=== PATIENT | male | born 1980 | race Hispanic/Latino ===

== ENCOUNTER 2025-05-27 16:59 | Inpatient (IN) | payer SELFPAY ==
--- NOTE | ~2025-05-27 | CT_ITS ---
CLINICAL INDICATION: Epigastric pain with nausea and vomiting with leukocytosis COMPARISON: None. TECHNIQUE: Multiple contiguous axial images of the abdomen and pelvis were performed following the ad ministration of with 100 mL Omnipaque-350 intravenous contrast The dose-length product (DLP) was 408.60 mGy-cm. Automated exposure control and iterative reconstruction technique were employed. FINDINGS/OBSERVATIONS: Visualized lower thorax: The bilateral lung bases are clear. The heart is of normal size, without pericardial effusion. Small hiatal hernia is present. Liver: The liver demonstrates homogeneous enhancement and is enlarged measuring 21 cm in longitudinal dimens ion. Gallbladder and biliary system: The gallbladder is only minimally distended, and otherwise unremarkable. Pancreas: Global enlargement of the pancreas with significant surrounding inflammatory change both anteriorly a s well as within the lesser sac. The pancreas enhances in its entirety without findings to suggest necrosis. No ductal dilatation is present. No drainable fluid collection is identified. Spleen: The spleen enhances homogeneously and is not enlarged. Kidneys: The bilateral kidneys enhance symmetrically without hydronephrosis or renal calculi. Adrenal glands: Unremarkable. Gastrointestinal tract: Colonic diverticulosis without surrounding inflammatory change. Appendix: The air-filled appendix is of normal caliber (axial series, images 116 through 134) Vasculature: Unremarkable. The inferior vena cava is appropriately distended suggesting euvolemia. Lymph nodes: No pathologically enlarged or morphologically suspicious lymph nodes within the retroperitoneum or at the root of the mesentery. Pelvic structures: The bladder is decompressed, limiting its evaluation. The prostate gland is not enlarged. Body wall and musculoskeletal: No significant degenerative disease within the lower thoracic or lumbosacral spine. IMPRESSION: Acute pancreatitis without evidence of necrosis or drainable fluid collection Reviewed, dictated and finalized at location A.
--- NOTE | ~2025-05-27 | US_ITS ---
EXAM: ABDOMEN ULTRASOUND HISTORY: Pancreatitis COMPARISON: Reference is made to CT examination of the abdomen and pelvis performed 90 minutes earlie r demonstrating acute pancreatitis. FINDINGS: LIVER: The liver is increased in echogenicity and size measuring 21 cm in longitudinal dimension. The portal vein is patent demonstrating hepatopedal flow GALLBLADDER: No stones are identified within the gallbladder, which is otherwise unremarkable. No gallbladder wall thickening or pericholecystic fluid. BILE DUCTS: Common bile duct measures 2.3mm. PANCREAS: Limited evaluation of the pancreas secondary to overlying bowel gas IMPRESSION: Limited evaluation of the pancreas secondary to overlying bowel gas No stones within the gallbladder. Redemonstration of hepatomegaly Reviewed, dictated and finalized at location A.
[2025-05-27 17:00] VITALS: BP 177/101; PULSE 76; RESP 18; TEMP 36.7; O2SAT 100
--- NOTE | 2025-05-27 17:30 | PC.NURSE ---
Patient states he has not ate since yesterday and felt shaky. RN checked BG, 163.
[2025-05-27 17:33] LABS: Hematocrit 46.3 % (42.0-52.0); Hemoglobin 15.7 g/dL (14.0-18.0); Immature Granulocyte Percent A 0.4 % (0-0.5); Lymphocytes Absolute Auto 0.73 K/mm3 (0.9-3.2); Mean Corpuscular HGB Conc 33.9 g/dl (32-36); Mean Corpuscular Hemoglobin 32.1 pg (26-34); Mean Corpuscular Volume 94.7 fl (80-100); Nucleated Red Blood Cells Absolute Auto 0.000 K/mm3 (0.0-0.012); Nucleated Red Blood Cells Perc 0.0 % (0.0-0.2); Platelet Count Result 318 k/mm3 (150-375); Red Blood Count 4.89 M/mm3 (4.6-6.20); White Blood Count 16.5 K/mm3 (4.5-10.0)
[2025-05-27 17:40] LABS: Add Urine Microscopic? YES; Appearance Urine Clear (Clear); Glucose Urine UA Negative (Negative); Leukocyte Esterase Ur Negative LEU/UL (Negative); Nitrate Urine Negative (Negative); Specific Grav Ur 1.024 (1.001-1.035)
[2025-05-27 17:56] LABS: Alanine Aminotransferase 41 U/L (6-50); Albumin Level 4.4 g/dL (3.5-5.1); Alkaline Phosphatase 125 U/L (38-126); Anion Gap 9 mmol/L (4-12); Aspartate Amino Transferase 43 U/L (17-59); Bilirubin,Total 1.4 mg/dL (0.2-1.3); Blood Urea Nitrogen 11 mg/dL (9-20); Calcium 9.2 mg/dL (8.4-10.2); Carbon Dioxide 24 mmol/L (22-30); Chloride 102 mmol/L (98-107); Estimated CRCL calculation 140 ml/min; Estimated Glomerular Filt Rate > 60; Glucose 147 mg/dL (65-110); Potassium 3.8 mmol/L (3.4-5.0); Sodium 135 mmol/L (137-145); Total Protein 7.7 g/dL (6.3-8.2)
[2025-05-27] MEDS: LACTATED RINGERS 1,000 ML 999 ML IV CONT ×2 (18:05→19:16)
[2025-05-27] MEDS: HYDROmorphone HCL INJ (*CRX) 2 MG/ML VIAL 1 MG IV PUSH (18:05)
[2025-05-27] MEDS: ONDANSETRON INJ 4 MG/2 ML VIAL IV PUSH (18:05)
--- NOTE | 2025-05-27 18:25 | ED_ITS ---
HPI - General Adult General Chief complaint: Abdominal Pain Stated complaint: abdominal pain Time Seen by Provider: 05/27/25 17:26 History of Present Illness HPI narrative: 45-year-old male present to the emergency department for evaluation for epigastric pain with associated nausea of vomiting. Patient states the epigastric pain started this morning. Patient does report to daily alcohol use but denies any prior history of pancreatitis or alcoholic cirrhosis. Patient denies any significant past medical history. Related Data Home Medications ?Medication ?Instructions ?Recorded ?Confirmed ?Last Taken ?Type No Home Medications 05/27/25 05/27/25 Unknown History Allergies Allergy/AdvReac Type Severity Reaction Status Date / Time No Known Allergies Allergy Unknown Verified 05/19/14 05:35 Review of Systems 2 Review of Systems: All systems reviewed & are unremarkable except as noted in HPI and below [facility] Family History Family History (Updated 05/27/25 @ 21:03 by Anamaria Guerra RN) Grandparent Acute myocardial infarction Cerebrovascular accident Mother Asthma Mother Diabetes mellitus Hypertension Other Prostate carcinoma Social History Social History Smoking status: Former smoker Alcohol intake: current Drinks per week: 70 Substance use type: crack/cocaine Lack of Transportation: No Lack of Food: Never True Current Housing: I Have Housing Concerned About Future Housing: No Difficulty Paying Gas/Electric Bills: No Difficulty Paying for Meds: No Currently Unemployed: No Education: High School Diploma/GED Difficulty w/ Childcare or Family Care: No Spiritual care concerns: No Exam 2 Narrative: APPEARANCE: Uncomfortable appearing HEAD: normocephalic, atraumatic. EYES: PERRLA/EOMI, conjunctivae clear. NOSE: Normal no drainage EARS:TMS clear with good light reflex. THROAT: Pharynx clear, no exudate. NECK: Supple. No adenopathy, no masses. RESPIRATORY: Airway patent, respirations nonlabored. Clear to auscultation bilaterally, no rales, rhonchi, wheezing. CARDIOVASCULAR: Regular rate and rhythm without murmurs rubs or gallops. ABDOMINAL: Epigastric and right lower quadrant tenderness to palpation MUSCULOSKELETAL: Moves all extremities. Strength/ROM intact, No edema, No calf tenderness. NEURO: Alert. Cranial nerves II through XII intact. Good gait. Good coordination SKIN: Warm, dry. Normal Color Course Vital Signs Vital signs: Vital Signs Temperature 98.1 F 05/27/25 17:00 Pulse Rate 76 08/11/25 17:00 Respiratory Rate 18 05/27/25 17:00 Blood Pressure 177/101 H 05/27/25 17:00 Pulse Oximetry 100 05/27/25 17:00 Oxygen Delivery Room Air 05/27/25 17:00 Temperature 98.4 F 05/27/25 21:28 Pulse Rate 85 05/27/25 21:28 Respiratory Rate 20 05/27/25 21:28 Blood Pressure 157/87 H 05/27/25 21:28 Pulse Oximetry 99 05/27/25 21:28 Oxygen Delivery Room Air 05/27/25 17:00 Medical Decision Making MDM Narrative Medical decision making narrative: 45-year-old male presents emergency department for evaluation for upper abdominal pain. Patient does have a daily alcohol history. Patient is afebrile but does have a leukocytosis of 16.5 and hemoglobin is 15.7. Patient does have a elevated blood sugar of 163 and a lipase of 6438. Patient was treated with 2 L of lactated Ringer's. UA was positive hematuria negative for infection. CT abdomen pelvis was ordered and does show acute appendicitis with no evidence of necrosis. Patient was discussed with hospitalist patient was accepted for admission. Differential Diagnosis Differential Diagnosis: Esophagitis, gastritis, pancreatitis, colitis, diverticulitis Vital Signs Vital Signs: Vital Signs Temperature 98.1 F 05/27/25 17:00 Pulse Rate 76 05/27/25 17:00 Respiratory Rate 18 05/27/25 17:00 Blood Pressure 177/101 H 05/27/25 17:00 Pulse Oximetry 100 05/27/25 17:00 Oxygen Delivery Room Air 05/27/25 17:00 Temperature 98.4 F 05/27/25 21:28 Pulse Rate 85 05/27/25 21:28 Respiratory Rate 20 05/27/25 21:28 Blood Pressure 157/87 H 05/27/25 21:28 Pulse Oximetry 99 05/27/25 21:28 Oxygen Delivery Room Air 05/27/25 17:00 Lab Data Lab results reviewed: Yes I reviewed the patient's lab results. 05/27/25 17:26 05/27/25 17:26 Labs: Lab Results 05/27/25 05/27/25 05/27/25 Range/Units 17:26 17:29 17:30 WBC 16.5 H (4.5-10.0) K/mm3 RBC 4.89 (4.6-6.20) M/mm3 Hgb 15.7 (14.0-18.0) g/dL Hct 46.3 (42.0-52.0) % MCV 94.7 (80-100) fl MCH 32.1 (26-34) pg MCHC 33.9 (32-36) g/dl RDW 12.7 (11.5-14.5) % Plt Count 318 (150-375) k/mm3 MPV 8.8 (7.4-10.4) fl Immature Gran % (Auto) 0.4 (0-0.5) % Neut % (Auto) 88.9 H (45.5-73.1) % Lymph % (Auto) 4.4 L (18.3-44.2) % [place] % (Auto) 6.1 (2.6-8.5) % Eos % (Auto) 0.0 (0-4.4) % Baso % (Auto) 0.2 (0.2-1.2) % Lymph # (Auto) 0.73 L (0.9-3.2) K/mm3 [place] # (Auto) 1.0 H (0.1-0.6) K/mm3 Eos # (Auto) 0.0 (0-0.3) K/mm3 Baso # (Auto) 0.0 (0.0-0.1) K/mm3 Abs Immat Gran (auto) 0.07 H (0.00-0.031) K/mm3 Absolute Neuts (auto) 14.7 H (1.3-6.7) K/mm3 Absolute Nucleated RBC 0.000 (0.0-0.012) K/mm3 Nucleated RBC % 0.0 (0.0-0.2) % Sodium 135 L (137-145) mmol/L Potassium 3.8 (3.4-5.0) mmol/L Chloride 102 (98-107) mmol/L Carbon Dioxide 24 (22-30) mmol/L Anion Gap 9 (4-12) mmol/L BUN 11 (9-20) mg/dL Creatinine 0.51 L (0.7-1.3) mg/dL Estim Creat Clear Calc 140 ml/min Estimated GFR > 60 (59 - ) Glucose 147 H (65-110) mg/dL POC Capillary Glucose 163 H (65-105) mg/dl Calcium 9.2 (8.4-10.2) mg/dL Total Bilirubin 1.4 H (0.2-1.3) mg/dL AST 43 (17-59) U/L ALT 41 (6-50) U/L Alkaline Phosphatase 125 (38-126) U/L Total Protein 7.7 (6.3-8.2) g/dL Albumin 4.4 (3.5-5.1) g/dL Lipase 6438 H (23-300) U/L Urine Color Dark yellow (Yellow) Urine Appearance Clear (Clear) Urine pH 5.5 (5.0-9.0) Ur Specific [place] 1.024 (1.001-1.035) Urine Protein 1+ H (Negative) mg/dL Urine Glucose (UA) Negative (Negative) mg/dL Urine Ketones 2+ H (Negative) mg/dL Ur Blood (Man) 2+ H (Negative) Urine Nitrate Negative (Negative) Urine Bilirubin 1+ H (Negative) Urine Urobilinogen 0.2 (<2.0) mg/dL Leukocyte Esterase Rfl Negative (Negative) SOLIS/UL Urine RBC 21-50 H (0-2) /hpf Urine WBC 0-5 (0-3) /hpf Ur Squamous Epith Cells None seen (Few) /hpf Urine Bacteria None seen /hpf Urine Casts 3-5 Imaging Data Radiologist's impression: Impressions Abdomen/Pelvis CT 05/27/25 18:44 IMPRESSION: Acute pancreatitis without evidence of necrosis or drainable fluid collection Discharge Plan Discharge Clinical Impression: Pancreatitis Patient Disposition: Still a Patient Condition: Serious
[2025-05-27 18:49] LABS: Lipase 6438 U/L (23-300)
[2025-05-27] MEDS: HYDROmorphone HCL INJ (*CRX) 2 MG/ML VIAL 0.5 MG IV PUSH (20:03)
[2025-05-27 20:24] VITALS: BP 146/92; PULSE 108; RESP 20; O2SAT 98
--- NOTE | 2025-05-27 20:53 | ADMGEN ---
This patient, Matt Carmen, was admitted to Medical Room 348-01. Patient/family oriented to hospital policies and general routines including ID bracelet, bed and alarms, visiting hours, pain management, procedures, bathroom and other care routines, personal items, smoking policy, room service/diet, and visiting hours. Information on how to activate the Rapid Response Team has been discussed. Patient/Family are encouraged to report perceived risks to care and to ask questions if they do not understand what they are told or what they should do.
[2025-05-27 21:28] VITALS: BP 157/87; PULSE 85; RESP 20; TEMP 36.9; O2SAT 99; BMI 26.9
[2025-05-27 21:30] VITALS: PULSE 85; RESP 20; O2SAT 99
[2025-05-27] MEDS: KETOROLAC 15 MG/ML VIAL (*BKC) IV PUSH (21:38)
[2025-05-27] MEDS: LACTATED RINGERS 1,000 ML 200 ML IV CONT (21:39)
--- NOTE | 2025-05-27 22:25 | P.HP_ITS ---
H&P: HPI History of Present Illness Date/Time: 05/27/25 22:25 Chief Complaint: Upper gastric pain Narrative: 45-year-old male history of alcohol use presents the hospital with acute upper gastric pain. Patient states that abdominal pain started this morning is acute, causing nausea and vomiting. So he presented to the hospital. He stated that he did drink 10 beers yesterday. He states that he does not drink every day but drinks most days. He is unsure of how many beers he has a daily basis but he believes if less than 10. Patient states that he has never had this before. He denies fevers chills nausea or vomiting. Lab work shows leukocytosis at 16.5, sodium of 135, creatinine of 0.51, glucose of 163, lipase of 6438. Abdominal CT shows acute pancreatitis without evidence of necrosis or fluid collection. Abdominal ultrasound shows hepatomegaly. Review of Systems Review of Systems: 12 systems were reviewed and are negativ e except for as per HPI. [facility] Family History Family History (Updated 05/27/25 @ 21:03 by Anamaria Guerra RN) Grandparent Acute myocardial infarction Cerebrovascular accident Mother Asthma Mother Diabetes mellitus Hypertension Other Prostate carcinoma Social History Social History Smoking status: Former smoker Alcohol intake: current Drinks per week: 70 Substance use type: crack/cocaine Lack of Transportation: No Lack of Food: Never True Current Housing: I Have Housing Concerned About Future Housing: No Difficulty Paying Gas/Electric Bills: No Difficulty Paying for Meds: No Currently Unemployed: No Education: High School Diploma/GED Difficulty w/ Childcare or Family Care: No Spiritual care concerns: No Meds Home Medications and Allergies Home Medications ?Medication ?Instructions ?Recorded ?Confirmed ?Type No Home Medications 05/27/25 05/27/25 History Allergies Allergy/AdvReac Type Severity Reaction Status Date / Time No Known Allergies Allergy Unknown Verified 05/19/14 05:35 Vital Signs Vital Signs - 24 hr 05/27/25 17:00 05/27/25 20:24 05/27/25 21:28 Temperature 98.1 F 98.4 F Pulse Rate 76 108 H 85 Respiratory Rate 18 20 20 Blood Pressure 177/101 H 146/92 H 157/87 H Pulse Oximetry 100 98 99 Oxygen Delivery Room Air Exam Narrative: General: well appearing, appears stated age. HEENT: normocephalic, atraumatic. Mucous membranes moist. EOMI, PERRLA, bilateral sclera anicteric, no conjunctival injection. Neck supple without JVD, lymphadenopathy, or bruit. Respiratory: clear to ascultation bilaterally. No rales/rhonic/wheezes. Cardiovascular: Regular rate and rhythm, normal S1-S2 upon ascultation. No murmurs, rubs, or clicks. PMI is nondisplaced, capillary refill less than 3 second. Abdomen: Soft, round, no pulsatile masses, tender to palpation No rebound, no guarding. No CVA tenderness, no hepatosplenomegaly. Bowel sounds present to all four quadrants. No high pitch or tinkling sounds, resonant to percussion. Extremities: No cyanosis, clubbing, or edema present. Pulses are palpable 2/2. Active ROM to all four extremities. Neuro: Alert and orientated x 4. PERRLA. Cranial nerves 2-12 intact without focal deficit. Skin: Warm, dry, and intact, without rash, erythema, or lesion. Psych: pleasant, cooperative, normal speech, normal affect, no hallucinations, no dysarthia H&P: Results Labs Labs: Short CBC 05/27/25 Range/Units 17:26 WBC 16.5 H (4.5-10.0) K/mm3 Hgb 15.7 (14.0-18.0) g/dL Hct 46.3 (42.0-52.0) % Plt Count 318 (150-375) k/mm3 BMP 05/27/25 17:26 Sodium 135 L Potassium 3.8 Chloride 102 Carbon Dioxide 24 BUN 11 Creatinine 0.51 L Glucose 147 H Calcium 9.2 Liver Function 05/27/25 Range/Units 17:26 Total Bilirubin 1.4 H (0.2-1.3) mg/dL AST 43 (17-59) U/L ALT 41 (6-50) U/L Alkaline Phosphatase 125 (38-126) U/L Albumin 4.4 (3.5-5.1) g/dL Urine 05/27/25 Range/Units 17:30 Urine Color Dark yellow (Yellow) Urine Appearance Clear (Clear) Urine pH 5.5 (5.0-9.0) Ur Specific [place] 1.024 (1.001-1.035) Urine Protein 1+ H (Negative) mg/dL Urine Glucose (UA) Negative (Negative) mg/dL Assessment and Plan Assessment and plan (1) Pancreatitis: Code(s): K85.90 - Acute pancreatitis without necrosis or infection, unspecified Status: Acute Assessment and Plan: 2 L LR bolus followed by 200 mL Dilaudid and Toradol Okay for water and ice chips Lipase in the morning (2) Leukocytosis: Code(s): D72.829 - Elevated white blood cell count, unspecified Status: Acute Assessment and Plan: Leukocytosis is often common in pancreatitis due to inflammation no antibiotics indicated at this time (3) Hepatomegaly: Code(s): R16.0 - Hepatomegaly, not elsewhere classified Status: Acute Assessment and Plan: Alcohol cessation discussed with patient Case management consulted CMP in the morning (4) High blood sugar: Code(s): R73.9 - Hyperglycemia, unspecified Status: Acute Assessment and Plan: A1c in the morning (5) Alcohol use: Code(s): F10.90 - Alcohol use, unspecified, uncomplicated Status: Acute Assessment and Plan: [facility] Schedule Librium Patient is express the desire to quit drinking Quality VTE Prophylaxis VTE prophylaxis: mechanical ordered Hospitalist MIPS Advance Care Plan I have confirmed that the patient's Advanced Care Plan is present, code status is documented, or surrogate decision maker is listed in patient medical record.: Yes Medication Reconciliation I have utilized all available resources to obtain, update and review the patients current medications (includes all prescriptions, OTC, herbals, cannabis, and nutritional supplements).: Yes
[2025-05-27] MEDS: chlordiazePOXIDE (*CRX) 25 MG CAPSULE PO (23:24)
[2025-05-28] VITALS (10 sets, daily range): BP systolic 141–146; BP diastolic 82–90; PULSE 71–108; RESP 14–18; TEMP 36.7–36.9; O2SAT 94–97
[2025-05-28] MEDS: HYDROmorphone HCL INJ (*CRX) 2 MG/ML VIAL 1 MG IV PUSH ×7 (00:31→23:25)
[2025-05-28] MEDS: LACTATED RINGERS 1,000 ML 200 ML IV CONT ×5 (02:26→23:26)
[2025-05-28] MEDS: KETOROLAC 15 MG/ML VIAL (*BKC) IV PUSH ×2 (02:27→08:15)
[2025-05-28 05:41] LABS: Hematocrit 40.7 % (42.0-52.0); Hemoglobin 13.5 g/dL (14.0-18.0); Immature Granulocyte Percent A 0.6 % (0-0.5); Lymphocytes Absolute Auto 1.61 K/mm3 (0.9-3.2); Mean Corpuscular HGB Conc 33.2 g/dl (32-36); Mean Corpuscular Hemoglobin 32.0 pg (26-34); Mean Corpuscular Volume 96.4 fl (80-100); Nucleated Red Blood Cells Absolute Auto 0.000 K/mm3 (0.0-0.012); Nucleated Red Blood Cells Perc 0.0 % (0.0-0.2); Platelet Count Result 249 k/mm3 (150-375); Red Blood Count 4.22 M/mm3 (4.6-6.20); White Blood Count 14.3 K/mm3 (4.5-10.0)
[2025-05-28] MEDS: chlordiazePOXIDE (*CRX) 25 MG CAPSULE PO ×4 (05:51→23:25)
[2025-05-28 06:01] LABS: Alanine Aminotransferase 25 U/L (6-50); Albumin Level 3.3 g/dL (3.5-5.1); Alkaline Phosphatase 79 U/L (38-126); Anion Gap 4 mmol/L (4-12); Aspartate Amino Transferase 37 U/L (17-59); Bilirubin,Total 1.2 mg/dL (0.2-1.3); Blood Urea Nitrogen 9 mg/dL (9-20); Calcium 9.3 mg/dL (8.4-10.2); Carbon Dioxide 29 mmol/L (22-30); Chloride 101 mmol/L (98-107); Estimated CRCL calculation 138 ml/min; Estimated Glomerular Filt Rate > 60; Glucose 101 mg/dL (65-110); Potassium 4.2 mmol/L (3.4-5.0); Sodium 134 mmol/L (137-145); Total Protein 6.0 g/dL (6.3-8.2)
[2025-05-28 06:26] LABS: Lipase 5493 U/L (23-300)
--- NOTE | 2025-05-28 09:14 | P.PNIM_ITS ---
Progress Note: A&P Assessment and Plan (1) Pancreatitis: Code(s): K85.90 - Acute pancreatitis without necrosis or infection, unspecified Status: Acute Assessment and Plan: CT abdomen/pelvis: Acute pancreatitis without evidence of necrosis or drainable fluid collection Abdomen US: No stones within the gallbladder, hepatomegaly Etiology: likely alcohol induced given daily drinking: unsure of how many beers he has a daily basis but he believes if less than 10 - Lipase 6438 on admission. Downtrending, currently 5493 on am labs - 2 L LR bolus given on 05/27, remains on LR 200 ml/hr - Analgesics - Diet: clear liquids - Monitor vital signs, I and O's, check stool output, neuro status and patient is a fall risk - Monitor serum electrolytes and CBC - Monitor lactic acid Continues to endorse epigastric pain. Denies nausea/vomiting. Tolerating clear liquid diets. (2) Hepatomegaly: Code(s): R16.0 - Hepatomegaly, not elsewhere classified Status: Acute Assessment and Plan: Alcohol cessation discussed with patient LFTs WNL Case management consulted (3) High blood sugar: Code(s): R73.9 - Hyperglycemia, unspecified Status: Acute Assessment and Plan: Random glucose elevated on admission at 147. A1c 5.7 Continue to monitor (4) Alcohol use: Code(s): F10.90 - Alcohol use, unspecified, uncomplicated Status: Acute Assessment and Plan: Drinks 10 beers a day and at least 2 pints of hard liquor per week Very interested in alcohol cessation CIWA protocol in place Ativan PRN On scheduled Librium, consider tapering pending CIWA Seizure precautions Start thiamine and folic acid p.o. Care coordination consulted Zhen to see patient today. Time Spent With Patient Time with patient: 25 - 35 minutes Subjective Date/time seen: 05/28/25 09:14 Interval history: 45-year-old male with past medical history of alcohol use disorder presents the hospital with acute epigastric pain. Patient is pleasant lying in bed. He continues to endorse epigastric pain but denies any associated nausea/vomiting and is tolerating clear liquid diet well. He has no other complaints denies chest pain, shortness a breath, palpitations. Review of Systems Review of Systems: All systems reviewed & are unremarkable except as noted in HPI and below Exam Narrative: AF HR 85 RR 18 SpO2 96 BP 146/90 General: male in no acute respiratory distress who is nontoxic appearing, lying semi recumbent in bed. HEENT: Normocephalic. Atraumatic. Extraocular movement intact. Sclera clear and anicteric. No facial asymmetry. Chest: Lungs are clear to auscultation bilaterally. CV: Heart was regular rate and rhythm. Abd: Abdomen was soft. Epigastric tenderness without guarding. Nondistended. Positive bowel sounds. Ext: No clubbing, cyanosis, or edema. DP pulses bilaterally. Neuro: Patient is alert and oriented x4. Speech is clear. Objective Data Vital Signs Vital Signs: Vital Signs - 24 hr 05/27/25 17:00 05/27/25 20:24 05/27/25 21:28 Temperature 98.1 F 98.4 F Pulse Rate 76 108 H 85 Respiratory Rate 18 20 20 Blood Pressure 177/101 H 146/92 H 157/87 H Pulse Oximetry 100 98 99 Oxygen Delivery Room Air 05/27/25 21:30 05/28/25 00:00 05/28/25 04:00 Temperature Pulse Rate 85 89 79 Respiratory Rate 20 Blood Pressure Pulse Oximetry 99 Oxygen Delivery Room Air 05/28/25 06:00 Temperature 98.0 F Pulse Rate 85 Respiratory Rate 18 Blood Pressure 146/90 H Pulse Oximetry 96 Oxygen Delivery Intake/Output Intake/Output: Intake & Output 05/25/25 05/26/25 05/27/25 05/28/25 23:59 23:59 23:59 23:59 Intake Total 1999 2200.0 Balance 1999 2200.0 Meds/Results Medications: Active Medications Generic Name Dose Route Start Last Admin Trade Name Freq PRN Reason Stop Dose Admin Chlordiazepoxide HCl 25 mg 05/28/25 00:00 05/28/25 05:51 Chlordiazepoxide (*Crx) 25 Mg Capsule PO 25 mg Q6HR HUDSON Administration Hydromorphone HCl 1 mg 05/27/25 20:52 05/28/25 06:25 Hydromorphone Hcl Inj (*Crx) 2 Mg/Ml Vial IV PUSH 1 mg Q2HR PRN Administration Pain Rated 7-10 Lactated Ringer's 1,000 mls @ 200 mls/hr 05/27/25 19:50 05/28/25 06:24 Lr - Lactated Ringers Iv IV CONT 200 mls/hr .Q5H HUDSON Administration Ketorolac Tromethamine 15 mg 05/27/25 21:00 05/28/25 08:15 Ketorolac 15 Mg/Ml Vial (*Bkc) IV PUSH 15 mg Q6H HUDSON Administration Lorazepam 1 mg 05/27/25 21:50 Lorazepam Inj (*Crx) 2 Mg/Ml Vial IV PUSH Q4HR PRN Alcohol Withdrawal Ondansetron HCl 4 mg 05/27/25 19:50 Ondansetron Inj 4 Mg/2 Ml Vial IV PUSH Q4H PRN Nausea Radiology Results: ITS Impressions Abdomen/Pelvis CT 05/27/25 18:44 IMPRESSION: Acute pancreatitis without evidence of necrosis or drainable fluid collection Abdomen Ultrasound 05/27/25 20:19 IMPRESSION: Limited evaluation of the pancreas secondary to overlying bowel gas No stones within the gallbladder. Redemonstration of hepatomegaly Labs Labs: Laboratory Results - last 24 hr 05/27/25 05/27/25 05/27/25 17:26 17:29 17:30 WBC 16.5 H RBC 4.89 Hgb 15.7 Hct 46.3 MCV 94.7 MCH 32.1 MCHC 33.9 RDW 12.7 Plt Count 318 MPV 8.8 Immature Gran % (Auto) 0.4 Neut % (Auto) 88.9 H Lymph % (Auto) 4.4 L [place] % (Auto) 6.1 Eos % (Auto) 0.0 Baso % (Auto) 0.2 Lymph # (Auto) 0.73 L [place] # (Auto) 1.0 H Eos # (Auto) 0.0 Baso # (Auto) 0.0 Abs Immat Gran (auto) 0.07 H Absolute Neuts (auto) 14.7 H Absolute Nucleated RBC 0.000 Nucleated RBC % 0.0 Sodium 135 L Potassium 3.8 Chloride 102 Carbon Dioxide 24 Anion Gap 9 BUN 11 Creatinine 0.51 L Estim Creat Clear Calc 140 Estimated GFR > 60 Glucose 147 H POC Capillary Glucose 163 H Calcium 9.2 Total Bilirubin 1.4 H AST 43 ALT 41 Alkaline Phosphatase 125 Total Protein 7.7 Albumin 4.4 Lipase 6438 H Urine Color Dark yellow Urine Appearance Clear Urine pH 5.5 Ur Specific [place] 1.024 Urine Protein 1+ H Urine Glucose (UA) Negative Urine Ketones 2+ H Ur Blood (Man) 2+ H Urine Nitrate Negative Urine Bilirubin 1+ H Urine Urobilinogen 0.2 Leukocyte Esterase Rfl Negative Urine RBC 21-50 H Urine WBC 0-5 Ur Squamous Epith Cells None seen Urine Bacteria None seen Urine Casts 3-5 05/28/25 05:29 WBC 14.3 H RBC 4.22 L Hgb 13.5 L Hct 40.7 L MCV 96.4 MCH 32.0 MCHC 33.2 RDW 12.7 Plt Count 249 MPV 8.7 Immature Gran % (Auto) 0.6 H Neut % (Auto) 80.0 H Lymph % (Auto) 11.3 L [place] % (Auto) 7.8 Eos % (Auto) 0.2 Baso % (Auto) 0.1 L Lymph # (Auto) 1.61 [place] # (Auto) 1.1 H Eos # (Auto) 0.0 Baso # (Auto) 0.0 Abs Immat Gran (auto) 0.09 H Absolute Neuts (auto) 11.4 H Absolute Nucleated RBC 0.000 Nucleated RBC % 0.0 Sodium 134 L Potassium 4.2 Chloride 101 Carbon Dioxide 29 Anion Gap 4 BUN 9 Creatinine 0.54 L Estim Creat Clear Calc 138 Estimated GFR > 60 Glucose 101 POC Capillary Glucose Calcium 9.3 Total Bilirubin 1.2 AST 37 ALT 25 Alkaline Phosphatase 79 Total Protein 6.0 L Albumin 3.3 L Lipase 5493 H Urine Color Urine Appearance Urine pH Ur Specific [place] Urine Protein Urine Glucose (UA) Urine Ketones Ur Blood (Man) Urine Nitrate Urine Bilirubin Urine Urobilinogen Leukocyte Esterase Rfl Urine RBC Urine WBC Ur Squamous Epith Cells Urine Bacteria Urine Casts Quality VTE Prophylaxis VTE prophylaxis: mechanical ordered
[2025-05-28] MEDS: THERAPEUTIC MULTIVITAMINS/MINERALS TAB (*BKC) 1 TABLET PO (10:50)
[2025-05-28] MEDS: FOLIC ACID 1 MG TABLET PO (10:50)
[2025-05-28] MEDS: THIAMINE HCL 100 MG TABLET PO (10:50)
[2025-05-28 12:04] LABS: Hemoglobin A1C 5.7 % (<5.7)
[2025-05-28] MEDS: HYDROcodone/acetaminophen (*CRX) 5-325 MG TABLET 1 TAB PO (17:22)
[2025-05-29] VITALS (9 sets, daily range): BP systolic 125–156; BP diastolic 75–92; PULSE 93–113; RESP 18–26; TEMP 36.9–37.7; O2SAT 90–95
[2025-05-29] MEDS: HYDROmorphone HCL INJ (*CRX) 2 MG/ML VIAL 1 MG IV PUSH ×8 (02:02→22:07)
[2025-05-29] MEDS: LACTATED RINGERS 1,000 ML 200 ML IV CONT ×4 (02:02→22:07)
[2025-05-29] MEDS: LORazepam INJ (*CRX) 2 MG/ML VIAL 1 MG IV PUSH (02:29)
[2025-05-29 06:02] LABS: Hematocrit 38.5 % (42.0-52.0); Hemoglobin 12.5 g/dL (14.0-18.0); Mean Corpuscular HGB Conc 32.5 g/dl (32-36); Mean Corpuscular Hemoglobin 31.9 pg (26-34); Mean Corpuscular Volume 98.2 fl (80-100); Platelet Count Result 194 k/mm3 (150-375); Red Blood Count 3.92 M/mm3 (4.6-6.20); White Blood Count 17.0 K/mm3 (4.5-10.0)
[2025-05-29] MEDS: chlordiazePOXIDE (*CRX) 25 MG CAPSULE PO ×3 (06:07→20:06)
[2025-05-29 06:25] LABS: Alanine Aminotransferase 17 U/L (6-50); Albumin Level 3.0 g/dL (3.5-5.1); Alkaline Phosphatase 73 U/L (38-126); Anion Gap 3 mmol/L (4-12); Aspartate Amino Transferase 28 U/L (17-59); Bilirubin,Total 1.1 mg/dL (0.2-1.3); Blood Urea Nitrogen 4 mg/dL (9-20); Calcium 8.0 mg/dL (8.4-10.2); Carbon Dioxide 30 mmol/L (22-30); Chloride 96 mmol/L (98-107); Estimated CRCL calculation 153 ml/min; Estimated Glomerular Filt Rate > 60; Glucose 89 mg/dL (65-110); Potassium 3.6 mmol/L (3.4-5.0); Sodium 129 mmol/L (137-145); Total Protein 5.6 g/dL (6.3-8.2)
[2025-05-29 06:39] LABS: Lipase 3062 U/L (23-300)
[2025-05-29] MEDS: THERAPEUTIC MULTIVITAMINS/MINERALS TAB (*BKC) 1 TABLET PO (08:32)
[2025-05-29] MEDS: THIAMINE HCL 100 MG TABLET PO (08:32)
[2025-05-29] MEDS: FOLIC ACID 1 MG TABLET PO (08:32)
--- NOTE | 2025-05-29 12:07 | P.PNIM_ITS ---
Progress Note: A&P Assessment and Plan (1) Pancreatitis: Code(s): K85.90 - Acute pancreatitis without necrosis or infection, unspecified Status: Acute Assessment and Plan: CT abdomen/pelvis: Acute pancreatitis without evidence of necrosis or drainable fluid collection Abdomen US: No stones within the gallbladder, hepatomegaly Etiology: likely alcohol induced given daily drinking: unsure of how many beers he has a daily basis but he believes if less than 10 - Lipase 6438 on admission. Downtrending, currently 5493 on am labs - 2 L LR bolus given on 05/27, remains on LR 200 ml/hr - Analgesics - Diet: clear liquids - Monitor vital signs, I and O's, check stool output, neuro status and patient is a fall risk - Monitor serum electrolytes and CBC - Monitor lactic acid Continues to endorse epigastric pain. Denies nausea/vomiting. Tolerating clear liquid diets. 05/29- lipase 3062- trending down (2) Hepatomegaly: Code(s): R16.0 - Hepatomegaly, not elsewhere classified Status: Acute Assessment and Plan: Alcohol cessation discussed with patient LFTs WN Case management consulted (3) High blood sugar: Code(s): R73.9 - Hyperglycemia, unspecified Status: Acute Assessment and Plan: Random glucose elevated on admission at 147. A1c 5.7 Continue to monitor (4) Alcohol use: Code(s): F10.90 - Alcohol use, unspecified, uncomplicated Status: Acute Assessment and Plan: Drinks 10 beers a day and at least 2 pints of hard liquor per week Very interested in alcohol cessation [facility] protocol in place Ativan PRN On scheduled Librium, consider tapering pending CIWA Seizure precautions Start thiamine and folic acid p.o. Care coordination consulted Zhen to see patient today. alcohol cessation counseling completed Time Spent With Patient Time with patient: 25 - 35 minutes Subjective Date/time seen: 05/29/25 12:07 Interval history: 45-year-old male with past medical history of alcohol use disorder presents the hospital with acute epigastric pain. Patient is pleasant lying in bed. He continues to endorse epigastric pain but denies any associated nausea/vomiting and is tolerating clear liquid diet well. He has no other complaints denies chest pain, shortness a breath, palpitations. Assuming care. PT is seen and examined. Some upper GI discomfort. Tolerating clear liquid. Review of Systems Review of Systems: 12 systems were reviewed and are negativ e except for as per HPI. All systems reviewed & are unremarkable except as noted in HPI and below Exam Narrative: AF HR 85 RR 18 SpO2 96 BP 146/90 General: male in no acute respiratory distress who is nontoxic appearing, lying semi recumbent in bed. HEENT: Normocephalic. Atraumatic. Extraocular movement intact. Sclera clear and anicteric. No facial asymmetry. Chest: Lungs are clear to auscultation bilaterally. CV: Heart was regular rate and rhythm. Abd: Abdomen was soft. Epigastric tenderness without guarding. Nondistended. Positive bowel sounds. Ext: No clubbing, cyanosis, or edema. DP pulses bilaterally. Neuro: Patient is alert and oriented x4. Speech is clear. Objective Data Vital Signs Vital Signs: Vital Signs - 24 hr 05/28/25 14:00 05/28/25 16:04 05/28/25 20:00 Temperature 98.2 F Pulse Rate 87 108 H 92 Respiratory Rate 14 Blood Pressure 141/84 H Pulse Oximetry 97 Oxygen Delivery 05/28/25 20:51 05/28/25 21:15 05/28/25 21:15 Temperature 98.4 F Pulse Rate 105 H 105 H Respiratory Rate 18 18 Blood Pressure 144/82 H 144/82 H Pulse Oximetry 94 94 Oxygen Delivery Room Air 05/28/25 21:15 05/29/25 00:00 05/29/25 04:21 Temperature Pulse Rate 105 H 107 H 110 H Respiratory Rate Blood Pressure Pulse Oximetry Oxygen Delivery 05/29/25 06:00 05/29/25 08:05 05/29/25 08:30 Temperature 98.5 F Pulse Rate 100 97 Respiratory Rate 18 Blood Pressure 131/75 Pulse Oximetry 95 Oxygen Delivery Room Air Intake/Output Intake/Output: Intake & Output 05/26/25 05/27/25 05/28/25 05/29/25 23:59 23:59 23:59 23:59 Intake Total 1999 5773.3 3440 Output Total 1575 1075 Balance 1999 5828.3 2365 Meds/Results Medications: Active Medications Generic Name Dose Route Start Last Admin Trade Name Freq PRN Reason Stop Dose Admin Hydrocodone Bitart/Acetaminophen 1 tab 05/28/25 14:13 05/28/25 17:22 Hydrocodone/Acetaminophen (*Crx) 5-325 Mg Tablet PO 1 tab Q4H PRN Administration Pain Rated 4-6 Chlordiazepoxide HCl 25 mg 05/28/25 00:00 05/29/25 11:53 Chlordiazepoxide (*Crx) 25 Mg Capsule PO 25 mg Q6HR HUDSON Administration Folic Acid 1 mg 05/28/25 10:00 05/29/25 08:32 Folic Acid 1 Mg Tablet PO 1 mg DAILY HUDSON Administration Hydromorphone HCl 1 mg 05/27/25 20:52 05/29/25 11:05 Hydromorphone Hcl Inj (*Crx) 2 Mg/Ml Vial IV PUSH 1 mg Q2HR PRN Administration Pain Rated 7-10 Lactated Ringer's 1,000 mls @ 200 mls/hr 05/27/25 19:50 05/29/25 08:36 Lr - Lactated Ringers Iv IV CONT 200 mls/hr .Q5H HUDSON Administration Lorazepam 1 mg 05/27/25 21:50 05/29/25 02:29 Lorazepam Inj (*Crx) 2 Mg/Ml Vial IV PUSH 1 mg Q4HR PRN Administration Alcohol Withdrawal Multivitamins/Calcium 1 tablet 05/28/25 10:00 05/29/25 08:32 Therapeutic Multivitamins/Minerals Tab (*Bkc) PO 1 tablet DAILY HUDSON Administration Ondansetron HCl 4 mg 05/27/25 19:50 Ondansetron Inj 4 Mg/2 Ml Vial IV PUSH Q4H PRN Nausea Polyethylene Glycol 17 gm 05/28/25 11:55 05/29/25 08:32 Polyethylene Glycol 3350 17 Gm Powd.Pack PO 17 gm QAM HUDSON Administration Thiamine HCl 100 mg 05/28/25 10:00 05/29/25 08:32 Thiamine Hcl 100 Mg Tablet PO 100 mg DAILY HUDSON Administration Radiology Results: ITS Impressions Abdomen/Pelvis CT 05/27/25 18:44 IMPRESSION: Acute pancreatitis without evidence of necrosis or drainable fluid collection Abdomen Ultrasound 05/27/25 20:19 IMPRESSION: Limited evaluation of the pancreas secondary to overlying bowel gas No stones within the gallbladder. Redemonstration of hepatomegaly Labs Labs: Laboratory Results - last 24 hr 05/28/25 05/28/25 05/29/25 18:41 23:31 05:51 WBC 17.0 H RBC 3.92 L Hgb 12.5 L Hct 38.5 L MCV 98.2 MCH 31.9 MCHC 32.5 RDW 12.3 Plt Count 194 MPV 9.0 Sodium 129 L Potassium 3.6 Chloride 96 L Carbon Dioxide 30 Anion Gap 3 L BUN 4 L D Creatinine 0.48 L Estim Creat Clear Calc 153 Estimated GFR > 60 Glucose 89 POC Capillary Glucose 133 H 111 H Calcium 8.0 L Total Bilirubin 1.1 AST 28 ALT 17 Alkaline Phosphatase 73 Total Protein 5.6 L Albumin 3.0 L Lipase 3062 H 05/29/25 05/29/25 06:11 11:54 WBC RBC Hgb Hct MCV MCH MCHC RDW Plt Count MPV Sodium Potassium Chloride Carbon Dioxide Anion Gap BUN Creatinine Estim Creat Clear Calc Estimated GFR Glucose POC Capillary Glucose 92 102 Calcium Total Bilirubin AST ALT Alkaline Phosphatase Total Protein Albumin Lipase Quality VTE Prophylaxis VTE prophylaxis: mechanical ordered
[2025-05-29] MEDS: FAMOTIDINE 20 MG TABLET PO (20:11)
[2025-05-30] VITALS (12 sets, daily range): BP systolic 125–132; BP diastolic 71–84; PULSE 74–101; RESP 18; TEMP 36.7–36.9; O2SAT 93–97
[2025-05-30] MEDS: chlordiazePOXIDE (*CRX) 25 MG CAPSULE PO ×4 (00:29→19:53)
[2025-05-30] MEDS: HYDROmorphone HCL INJ (*CRX) 2 MG/ML VIAL 1 MG IV PUSH ×4 (00:31→06:32)
[2025-05-30] MEDS: LACTATED RINGERS 1,000 ML 200 ML IV CONT ×5 (04:39→23:47)
[2025-05-30 05:51] LABS: Hematocrit 36.4 % (42.0-52.0); Hemoglobin 12.2 g/dL (14.0-18.0); Mean Corpuscular HGB Conc 33.5 g/dl (32-36); Mean Corpuscular Hemoglobin 32.3 pg (26-34); Mean Corpuscular Volume 96.3 fl (80-100); Platelet Count Result 216 k/mm3 (150-375); Red Blood Count 3.78 M/mm3 (4.6-6.20); White Blood Count 14.6 K/mm3 (4.5-10.0)
[2025-05-30 06:15] LABS: Alanine Aminotransferase 18 U/L (6-50); Albumin Level 2.9 g/dL (3.5-5.1); Alkaline Phosphatase 130 U/L (38-126); Anion Gap 3 mmol/L (4-12); Aspartate Amino Transferase 38 U/L (17-59); Bilirubin,Total 2.2 mg/dL (0.2-1.3); Blood Urea Nitrogen 3 mg/dL (9-20); Calcium 8.4 mg/dL (8.4-10.2); Carbon Dioxide 30 mmol/L (22-30); Chloride 98 mmol/L (98-107); Estimated CRCL calculation 159 ml/min; Estimated Glomerular Filt Rate > 60; Glucose 97 mg/dL (65-110); Lipase 908 U/L (23-300); Potassium 3.4 mmol/L (3.4-5.0); Sodium 131 mmol/L (137-145); Total Protein 5.8 g/dL (6.3-8.2)
[2025-05-30] MEDS: THIAMINE HCL 100 MG TABLET PO (08:07)
[2025-05-30] MEDS: THERAPEUTIC MULTIVITAMINS/MINERALS TAB (*BKC) 1 TABLET PO (08:07)
[2025-05-30] MEDS: FAMOTIDINE 20 MG TABLET PO ×2 (08:07→19:53)
[2025-05-30] MEDS: HYDROcodone/acetaminophen (*CRX) 5-325 MG TABLET 1 TAB PO ×3 (08:08→16:36)
[2025-05-30] MEDS: FOLIC ACID 1 MG TABLET PO (08:08)
[2025-05-30] MEDS: MECLIZINE HCL 12.5 MG TABLET PO ×3 (12:04→23:46)
--- NOTE | 2025-05-30 15:05 | P.PNIM_ITS ---
Progress Note: A&P Assessment and Plan (1) Pancreatitis: Code(s): K85.90 - Acute pancreatitis without necrosis or infection, unspecified Status: Acute Assessment and Plan: CT abdomen/pelvis: Acute pancreatitis without evidence of necrosis or drainable fluid collection Abdomen US: No stones within the gallbladder, hepatomegaly Etiology: likely alcohol induced given daily drinking: unsure of how many beers he has a daily basis but he believes if less than 10 - Lipase 6438 on admission. Downtrending, currently 5493 on am labs - 2 L LR bolus given on 05/27, remains on LR 200 ml/hr - Analgesics - Diet: clear liquids - Monitor vital signs, I and O's, check stool output, neuro status and patient is a fall risk - Monitor serum electrolytes and CBC - Monitor lactic acid Continues to endorse epigastric pain. Denies nausea/vomiting. Tolerating clear liquid diets. 05/29- lipase 3062- trending down (2) Hepatomegaly: Code(s): R16.0 - Hepatomegaly, not elsewhere classified Status: Acute Assessment and Plan: Alcohol cessation discussed with patient LFTs WN Case management consulted (3) High blood sugar: Code(s): R73.9 - Hyperglycemia, unspecified Status: Acute Assessment and Plan: Random glucose elevated on admission at 147. A1c 5.7 Continue to monitor (4) Alcohol use: Code(s): F10.90 - Alcohol use, unspecified, uncomplicated Status: Acute Assessment and Plan: Drinks 10 beers a day and at least 2 pints of hard liquor per week Very interested in alcohol cessation [facility] protocol in place Ativan PRN On scheduled Librium, consider tapering pending CIWA Seizure precautions Start thiamine and folic acid p.o. Care coordination consulted Zhen to see patient today. alcohol cessation counseling completed titrate Librium down- 25 mg q8h 05/31, 25 mg q12h on 06/01, 25 mg at hs on 06/02 Time Spent With Patient Time with patient: 25 - 35 minutes Subjective Date/time seen: 05/30/25 15:05 Interval history: 45-year-old male with past medical history of alcohol use disorder presents the hospital with acute epigastric pain. Patient is pleasant lying in bed. He continues to endorse epigastric pain but denies any associated nausea/vomiting and is tolerating clear liquid diet well. He has no other complaints denies chest pain, shortness a breath, palpitations. Assuming care. PT is seen and examined. Some upper GI discomfort. Tolerating clear liquid. somewhat dizzy today but overall feeling ok. Review of Systems Review of Systems: 12 systems were reviewed and are negativ e except for as per HPI. All systems reviewed & are unremarkable except as noted in HPI and below Exam Narrative: AF HR 85 RR 18 SpO2 96 BP 146/90 General: male in no acute respiratory distress who is nontoxic appearing, lying semi recumbent in bed. HEENT: Normocephalic. Atraumatic. Extraocular movement intact. Sclera clear and anicteric. No facial asymmetry. Chest: Lungs are clear to auscultation bilaterally. CV: Heart was regular rate and rhythm. Abd: Abdomen was soft. Epigastric tenderness without guarding. Nondistended. Positive bowel sounds. Ext: No clubbing, cyanosis, or edema. DP pulses bilaterally. Neuro: Patient is alert and oriented x4. Speech is clear. Objective Data Vital Signs Vital Signs: Vital Signs - 24 hr 05/29/25 16:05 05/29/25 20:00 05/29/25 20:41 Temperature 98.8 F Pulse Rate 97 93 107 H Respiratory Rate 18 Blood Pressure 156/92 H Pulse Oximetry 90 05/30/25 00:00 05/30/25 04:00 05/30/25 05:45 Temperature 98.1 F Pulse Rate 101 H 90 87 Respiratory Rate 18 Blood Pressure 128/84 Pulse Oximetry 94 05/30/25 08:05 05/30/25 09:08 05/30/25 09:11 Temperature Pulse Rate 92 87 90 Respiratory Rate Blood Pressure 131/71 132/83 Pulse Oximetry 93 97 05/30/25 12:06 05/30/25 14:00 Temperature 98.2 F Pulse Rate 77 74 Respiratory Rate 18 Blood Pressure 128/77 Pulse Oximetry 95 Intake/Output Intake/Output: Intake & Output 05/27/25 05/28/25 05/29/25 05/30/25 23:59 23:59 23:59 23:59 Intake Total 1999 5773.3 7510 3330 Output Total 1575 4225 2350 Balance 1999 4198.3 3285 980 Meds/Results Medications: Active Medications Generic Name Dose Route Start Last Admin Trade Name Freq PRN Reason Stop Dose Admin Hydrocodone Bitart/Acetaminophen 1 tab 05/28/25 14:13 05/30/25 12:04 Hydrocodone/Acetaminophen (*Crx) 5-325 Mg Tablet PO 1 tab Q4H PRN Administration Pain Rated 4-6 Hydrocodone Bitart/Acetaminophen 1 tab 05/30/25 13:59 Hydrocodone/Acetaminophen (*Crx) 7.5-325 Mg Tablet PO Q4H PRN Pain Rated 7-10 Chlordiazepoxide HCl 25 mg 05/28/25 00:00 05/30/25 12:04 Chlordiazepoxide (*Crx) 25 Mg Capsule PO 25 mg Q6HR HUDSON Administration Famotidine 20 mg 05/29/25 21:00 05/30/25 08:07 Famotidine 20 Mg Tablet PO 20 mg Q12HR HUDSON Administration Folic Acid 1 mg 05/28/25 10:00 05/30/25 08:08 Folic Acid 1 Mg Tablet PO 1 mg DAILY HUDSON Administration Hydromorphone HCl 1 mg 05/27/25 20:52 05/30/25 06:32 Hydromorphone Hcl Inj (*Crx) 2 Mg/Ml Vial IV PUSH 1 mg Q2HR PRN Administration breakthrough Pain Rated 7-10 Lactated Ringer's 1,000 mls @ 200 mls/hr 05/27/25 19:50 05/30/25 12:04 Lr - Lactated Ringers Iv IV CONT 200 mls/hr .Q5H HUDSON Administration Lorazepam 1 mg 05/27/25 21:50 05/29/25 02:29 Lorazepam Inj (*Crx) 2 Mg/Ml Vial IV PUSH 1 mg Q4HR PRN Administration Alcohol Withdrawal Meclizine HCl 12.5 mg 05/30/25 18:00 Meclizine Hcl 12.5 Mg Tablet PO Q6HR HUDSON Multivitamins/Calcium 1 tablet 05/28/25 10:00 05/30/25 08:07 Therapeutic Multivitamins/Minerals Tab (*Bkc) PO 1 tablet DAILY HUDSON Administration Ondansetron HCl 4 mg 05/27/25 19:50 Ondansetron Inj 4 Mg/2 Ml Vial IV PUSH Q4H PRN Nausea Polyethylene Glycol 17 gm 05/28/25 11:55 05/30/25 08:09 Polyethylene Glycol 3350 17 Gm Powd.Pack PO 17 gm QAM HUDSON Administration Thiamine HCl 100 mg 05/28/25 10:00 05/30/25 08:07 Thiamine Hcl 100 Mg Tablet PO 100 mg DAILY HUDSON Administration Radiology Results: ITS Impressions Abdomen/Pelvis CT 05/27/25 18:44 IMPRESSION: Acute pancreatitis without evidence of necrosis or drainable fluid collection Abdomen Ultrasound 05/27/25 20:19 IMPRESSION: Limited evaluation of the pancreas secondary to overlying bowel gas No stones within the gallbladder. Redemonstration of hepatomegaly Labs Labs: Laboratory Results - last 24 hr 05/29/25 05/29/25 05/30/25 18:09 23:35 05:32 WBC RBC Hgb Hct MCV MCH MCHC RDW Plt Count MPV Sodium 131 L Potassium 3.4 Chloride 98 Carbon Dioxide 30 Anion Gap 3 L BUN 3 L Creatinine 0.46 L Estim Creat Clear Calc 159 Estimated GFR > 60 Glucose 97 POC Capillary Glucose 194 H 101 Calcium 8.4 Total Bilirubin 2.2 H AST 38 ALT 18 Alkaline Phosphatase 130 H Total Protein 5.8 L Albumin 2.9 L Lipase 908 H 05/30/25 05/30/25 05/30/25 05:33 05:41 11:46 WBC 14.6 H RBC 3.78 L Hgb 12.2 L Hct 36.4 L MCV 96.3 MCH 32.3 MCHC 33.5 RDW 12.5 Plt Count 216 MPV 9.5 Sodium Potassium Chloride Carbon Dioxide Anion Gap BUN Creatinine Estim Creat Clear Calc Estimated GFR Glucose POC Capillary Glucose 89 120 H Calcium Total Bilirubin AST ALT Alkaline Phosphatase Total Protein Albumin Lipase Quality VTE Prophylaxis VTE prophylaxis: mechanical ordered
[2025-05-30] MEDS: HYDROcodone/acetaminophen (*CRX) 7.5-325 MG TABLET 1 TAB PO ×2 (19:53→23:46)
[2025-05-31] VITALS (10 sets, daily range): BP systolic 110–147; BP diastolic 62–91; PULSE 65–90; RESP 18–20; TEMP 36.3–37; O2SAT 97–100
[2025-05-31] MEDS: HYDROcodone/acetaminophen (*CRX) 7.5-325 MG TABLET 1 TAB PO ×3 (01:38→20:22)
[2025-05-31] MEDS: chlordiazePOXIDE (*CRX) 25 MG CAPSULE PO ×3 (04:03→20:23)
[2025-05-31] MEDS: MECLIZINE HCL 12.5 MG TABLET PO ×2 (06:02→12:55)
[2025-05-31 07:04] LABS: Hematocrit 34.4 % (42.0-52.0); Hemoglobin 11.3 g/dL (14.0-18.0); Mean Corpuscular HGB Conc 32.8 g/dl (32-36); Mean Corpuscular Hemoglobin 31.9 pg (26-34); Mean Corpuscular Volume 97.2 fl (80-100); Platelet Count Result 240 k/mm3 (150-375); Red Blood Count 3.54 M/mm3 (4.6-6.20); White Blood Count 11.7 K/mm3 (4.5-10.0)
[2025-05-31 07:30] LABS: Alanine Aminotransferase 15 U/L (6-50); Albumin Level 2.7 g/dL (3.5-5.1); Alkaline Phosphatase 145 U/L (38-126); Anion Gap 5 mmol/L (4-12); Aspartate Amino Transferase 27 U/L (17-59); Bilirubin,Total 1.1 mg/dL (0.2-1.3); Blood Urea Nitrogen 3 mg/dL (9-20); Calcium 8.3 mg/dL (8.4-10.2); Carbon Dioxide 29 mmol/L (22-30); Chloride 101 mmol/L (98-107); Estimated CRCL calculation 168 ml/min; Estimated Glomerular Filt Rate > 60; Glucose 101 mg/dL (65-110); Lipase 761 U/L (23-300); Potassium 3.2 mmol/L (3.4-5.0); Sodium 135 mmol/L (137-145); Total Protein 5.6 g/dL (6.3-8.2)
[2025-05-31] MEDS: HYDROcodone/acetaminophen (*CRX) 5-325 MG TABLET 1 TAB PO (08:20)
[2025-05-31] MEDS: FOLIC ACID 1 MG TABLET PO (08:20)
[2025-05-31] MEDS: THIAMINE HCL 100 MG TABLET PO (08:20)
[2025-05-31] MEDS: FAMOTIDINE 20 MG TABLET PO ×2 (08:20→20:22)
[2025-05-31] MEDS: THERAPEUTIC MULTIVITAMINS/MINERALS TAB (*BKC) 1 TABLET PO (08:20)
--- NOTE | 2025-05-31 15:09 | PM.DS ---
DS: Admitting Diagnosis Discharge Date 05/31 Admitting Diagnosis abd pain, pancreatitis DS: Discharge Diagnosis Discharge Diagnosis (1) Pancreatitis: Code(s): K85.90 - Acute pancreatitis without necrosis or infection, unspecified Status: Acute (2) Hepatomegaly: Code(s): R16.0 - Hepatomegaly, not elsewhere classified Status: Acute (3) High blood sugar: Code(s): R73.9 - Hyperglycemia, unspecified Status: Acute (4) Alcohol use: Code(s): F10.90 - Alcohol use, unspecified, uncomplicated Status: Acute DS: Summary Hospital Course Hospital Course: 45-year-old male with past medical history of alcohol use disorder presents the hospital with acute epigastric pain. Several issues were addressed: # pancreatitis CT abdomen/pelvis: Acute pancreatitis without evidence of necrosis or drainable fluid collection Abdomen US: No stones within the gallbladder, hepatomegaly Etiology: likely alcohol induced given daily drinking: unsure of how many beers he has a daily basis but he believes if less than 10 - Lipase 6438 on admission. Downtrending- 5493 , 05/29- lipase 3062- trending down - 2 L LR bolus given on 05/27 - Analgesics - Diet: clear liquids- was able to advance #Hepatomegaly: Alcohol cessation discussed with patient LFTs WNL Case management consulted for resources # High blood sugar: Random glucose elevated on admission at 147. A1c 5.7 will need a f/u with PCP #Alcohol use: Drinks 10 beers a day and at least 2 pints of hard liquor per week Very interested in alcohol cessation [facility] protocol in place Ativan PRN- did not need it On scheduled Librium, consider tapering pending [facility] Seizure precautions thiamine and folic acid p.o. Care coordination consulted -titrate Librium down- 25 mg q8h 05/31, 25 mg q12h on 06/01, 25 mg at hs on 06/02 Time Spent with Patient Time attestation: Total time spent providing and/or coordinating discharge services: Exam Narrative: General: male in no acute respiratory distress who is nontoxic appearing, lying semi recumbent in bed. HEENT: Normocephalic. Atraumatic. Extraocular movement intact. Sclera clear and anicteric. No facial asymmetry. Chest: Lungs are clear to auscultation bilaterally. CV: Heart was regular rate and rhythm. Abd: Abdomen was soft. Epigastric tenderness without guarding. Nondistended. Positive bowel sounds. Ext: No clubbing, cyanosis, or edema. DP pulses bilaterally. Neuro: Patient is alert and oriented x4. Speech is clear. Const: General: comfortable DS: Data Data Completed and Pending Labs on day of discharge: Labs from last 24 hours 05/31/25 05/31/25 05/30/25 05:48 05:31 23:34 WBC 11.7 H RBC 3.54 L Hgb 11.3 L Hct 34.4 L MCV 97.2 MCH 31.9 MCHC 32.8 RDW 12.4 Plt Count 240 MPV 9.7 Sodium 135 L Potassium 3.2 L Chloride 101 Carbon Dioxide 29 Anion Gap 5 BUN 3 L Creatinine 0.43 L Estim Creat Clear Calc 168 Estimated GFR > 60 Glucose 101 POC Capillary Glucose 96 102 Calcium 8.3 L Total Bilirubin 1.1 AST 27 ALT 15 Alkaline Phosphatase 145 H Total Protein 5.6 L Albumin 2.7 L Lipase 761 H Discharge Plan Discharge Attending physician on discharge: Adriana Ayala Consulting providers: Srini Peña; Felicia Byrnes Discharging Clinician: Emma Davis Patient Disposition: Home Activity: february shower Diet: low fat Discharge Instructions: You were admitted for abd pain/pancreatitis. # pancreatitis CT abdomen/pelvis: Acute pancreatitis without evidence of necrosis or drainable fluid collection Abdomen US: No stones within the gallbladder, hepatomegaly Etiology: likely alcohol induced given daily drinking. # High blood sugar: Random glucose elevated on admission at 147. A1c 5.7 will need a f/u with PCP #Alcohol use: Drinks 10 beers a day and at least 2 pints of hard liquor per week Please use resources given to you per care coordination. You were given Librium to help with alcohol withdrawal symptoms. Librium down- 25 mg q8h 05/31, 25 mg q12h on 06/01, 25 mg at hs on 06/02 Pepcid was started and will continue. Continue thiamine and multivitamin. Patient Instructions: Antibiotic Form Patient Language: Belarusian Stand Alone Forms: General Discharge Information Follow-up/Referrals: PHYSICIAN,SCRAP DROP CRANE OPERATOR [Primary Care Provider] - 2 Weeks Discharge Medications: New chlordiazepoxide HCl 25 mg Capsule 25 mg PO Q8H Qty: 5 0RF Rx Instructions: please take 25 mg at bedtime. 06/01 at bedtime and then take one at bedtime if needed. famotidine [Pepcid] 20 mg tablet 20 mg PO DAILY Qty: 30 0RF hydrocodone-acetaminophen 5-325 mg Tablet 1 tablet PO Q4H PRN (Reason: Pain Rated 4-6) Qty: 12 0RF thiamine HCl (vitamin B1) [Vitamin B-1] 100 mg Tablet 100 mg PO DAILY Qty: 30 0RF Date of admission: 05/28/25 09:03 Primary Care Provider: PHYSICIAN,SCRAP DROP CRANE OPERATOR Admitting Provider: German Bro Attending physician on admission: German Bro Condition: Stable Quality VTE Prophylaxis VTE prophylaxis: mechanical ordered Hospitalist MIPS Heart Failure (Exclusion) Patient has history of Heart Transplant or Left Ventricular Assistive Device?: No IF YES, STOP HERE Heart Failure (Qualifier) Patient has current or prior documentation of LVEF less than or equal to 40%, or mod/servere depressed LVSF?: No IF NO, STOP HERE
--- NOTE | 2025-05-31 20:29 | PC.NURSE ---
AT THIS TIME PATIENT HAS MISUNDERSTANDING SURROUNDING DISCHARGE. COMMENT WAS MADE TO THIS NURSE THAT THE PHYSICIAN MADE HIM AWARE THAT HE WAS ABLE TO DISCHARGE TODAY. PER PATIENT HE'S UNABLE TO GET A RIDE UNTIL AFTER 9PM. CONCERNED WAS ALSO VOICED TO PAIN CONTROL. THIS NURSE CLARIFIED WITH PATIENT THAT THERE WAS AN ORDER FOR HIS DISCHARGE TODAY ALSO THAT PAIN MANAGEMENT WAS ADDRESSED IN THE PAPERWORK. CURRENTLY PATIENT IS UNABLE TO GET INTO CONTACT WITH HIS TRANSPORTATION. ANIMAL HUSBANDRY TECHNICIAN NOTIFIED.
--- NOTE | 2025-05-31 23:32 | PC.NURSE ---
2320: DISCHARGE LITERATURE REVIEWED AND GIVEN TO PATIENT ALONG WITH PRINTED PRESCRIPTIONS. ALL BELONGINGS AND PATIENT TRANSFERRED OUT TO PERSONAL VEHICLE VIA WHEELCHAIR.
== END 2025-05-31 23:20 | disposition home or self-care (01) | DRG 282 ==
LOC: ANHED 19:13 → ANH3MED 20:23
PROVIDERS: Emergency Medicine; Nurse Practitioner Gerontology; Student in an Organized Health Care Education/Training Program; Admitting Provider Internal Medicine; Emergency Provider Emergency Medicine; Visit Provider Nurse Practitioner
DX: K85.90 Acute pancreatitis without necrosis or infection, unspecified (principal); R16.0 Hepatomegaly, not elsewhere classified; R73.9 Hyperglycemia, unspecified; F10.90 Alcohol use, unspecified, uncomplicated; Z87.891 Personal history of nicotine dependence
CPT/HCPCS: 36415; 74177; 76705; 80053; 81001; 82948; 83036; 83690; 85025; 85027; 96361; 96374; 96375; 96376; 99285; A9270; G0378; J1171; J1885; J2060; J2405; J7120; Q9967

== ENCOUNTER 2025-07-04 09:15 | Inpatient (IN) | payer SELFPAY ==
[2025-07-04] VITALS (15 sets, daily range): BP systolic 131–147; BP diastolic 82–92; PULSE 56–83; RESP 16–20; TEMP 36.2–36.9; O2SAT 97–99; BMI 28.3
--- NOTE | ~2025-07-04 | CT_ITS ---
CT abdomen pelvis w con Clinical History: lower abdominal pain . Comparison: CT abdomen and pelvis 05/27/2025 Abdominal ultrasound 05/27/2025 Technique: Axial images lung bases to symphysis pubis IV contrast information not listed in PACS Coronal, sagittal reformats CT images acquired with automatic exposure control for dose reduction DLP: 485 mGy-cm Findings: Lung bases: Clear. Visualized heart and pericardium: Unremarkable. Liver: Hepatomegaly, steatosis. Gallbladder: Unremarkable. Spleen: Unremarkable. Pancreas: Peripancreatic fluid and inflammation. Decreased glandular enhancement along tail. No peripancreatic organized fluid collection. Regional vessels patent. Adrenal glands: Unremarkable. Kidneys: A few small bilateral probable cysts Right kidney- No hydronephrosis. No renal stones. Left kidney- No hydronephrosis. No renal stones. Distal esophagus/stomach: Unremarkable. Small bowel loops: Normal caliber and wall thickness. Colon: Diverticula. Normal caliber and wall thickness. Normal RLQ appendix. Nodes: No enlarged nodes. Peritoneum: Mild scattered ascites. No free air. Urinary bladder: Unremarkable. Prostate: Unremarkable. Bones: No acute bony abnormality. Soft tissues: Unremarkable. Aorta: No aneurysm or dissection. IVC: Unremarkable. Main portal vein/SMV/splenic vein: Patent. IMPRESSION: 1. Acute pancreatitis, with mildly worsened surrounding fluid and inflammation from prior scan. 2. Focal pancreatic tail necrosis. 3. Mild scattered ascites. 4. Otherwise no acute abnormality. Reviewed, dictated and finalized at location R.
--- NOTE | 2025-07-04 09:34 | ED_ITS ---
HPI - General Adult General Chief complaint: Abdominal Pain Stated complaint: abd pain Time Seen by Provider: 07/04/25 09:23 History of Present Illness HPI narrative: 45-year-old male presents to the emergency department for evaluation for epigastric abdominal pain with associated shortness of breath. patient does have a history of pancreatitis but states he has not drank any alcohol in approximately 20 days. Patient does complain of epigastric and left lower quadrant tenderness to palpation. Related Data Allergies Allergy/AdvReac Type Severity Reaction Status Date / Time No Known Allergies Allergy Unknown Verified 07/04/25 09:17 Review of Systems 2 Review of Systems: All systems reviewed & are unremarkable except as noted in HPI and below PMFSH Family History Family History (Updated 05/27/25 @ 21:03 by Anamaria Guerra RN) Grandparent Acute myocardial infarction Cerebrovascular accident Mother Asthma Mother Diabetes mellitus Hypertension Other Prostate carcinoma Social History Social History Smoking status: Former smoker Alcohol intake: current Drinks per week: 70 Substance use type: crack/cocaine Lack of Transportation: No Lack of Food: Never True Current Housing: I Have Housing Concerned About Future Housing: No Difficulty Paying Gas/Electric Bills: No Difficulty Paying for Meds: No Currently Unemployed: No Education: High School Diploma/GED Difficulty w/ Childcare or Family Care: No Spiritual care concerns: No Exam 2 Narrative: APPEARANCE: Well appearing, no pain, no distress, well-nourished. HEAD: normocephalic, atraumatic. EYES: PERRLA/EOMI, conjunctivae clear. NOSE: Normal no drainage EARS:TMS clear with good light reflex. THROAT: Pharynx clear, no exudate. NECK: Supple. No adenopathy, no masses. RESPIRATORY: Airway patent, respirations nonlabored. Clear to auscultation bilaterally, no rales, rhonchi, wheezing. CARDIOVASCULAR: Regular rate and rhythm without murmurs rubs or gallops. ABDOMINAL: Epigastric and left lower quadrant tenderness to palpation MUSCULOSKELETAL: Moves all extremities. Strength/ROM intact, No edema, No calf tenderness. NEURO: Alert. Cranial nerves II through XII intact. Good gait. Good coordination SKIN: Warm, dry. Normal Color Course Vital Signs Vital signs: Vital Signs Temperature 97.9 F 07/04/25 09:22 Pulse Rate 83 07/04/25 09:22 Respiratory Rate 16 07/04/25 09:22 Blood Pressure 147/89 H 07/04/25 09:22 Pulse Oximetry 99 07/04/25 09:22 Temperature 98.4 F 07/04/25 09:32 Pulse Rate 67 07/04/25 09:32 Respiratory Rate 20 07/04/25 09:32 Blood Pressure 135/92 H 07/04/25 09:46 Pulse Oximetry 97 07/04/25 11:45 Oxygen Delivery Room Air 07/04/25 09:32 Medical Decision Making [facility] Narrative Medical decision making narrative: 45-year-old male present to the emergency department for evaluation for epigastric and left lower quadrant abdominal pain. Patient is afebrile but does have a leukocytosis of 13.8 with hemoglobin 15.0. No significant acute abnormalities on the patient's CMP with a mildly elevated T bili of 1.9. Patient does have an elevated lipase of 3931. CT scan was ordered and does confirm pancreatitis with worsening surrounding fluid. Patient does have a area of focal necrosis. I did discuss the case with the hospitalist patient was accepted for admission. Patient did receive 2 L of lactated Ringer's in the emergency department, he was made NPO and does have maintenance fluids ordered. Patient was provided medication for pain control. Patient was updated the results of the workup patient is comfortable with plan for admission. Case was discussed with the hospitalist patient was accepted for admission. Differential Diagnosis Differential Diagnosis: Cholecystitis, pancreatitis, appendicitis, colitis, diverticulitis Vital Signs Vital Signs: Vital Signs Temperature 97.9 F 07/04/25 09:22 Pulse Rate 83 07/04/25 09:22 Respiratory Rate 16 07/04/25 09:22 Blood Pressure 147/89 H 07/04/25 09:22 Pulse Oximetry 99 07/04/25 09:22 Temperature 98.4 F 07/04/25 09:32 Pulse Rate 67 07/04/25 09:32 Respiratory Rate 20 07/04/25 09:32 Blood Pressure 135/92 H 07/04/25 09:46 Pulse Oximetry 97 07/04/25 11:45 Oxygen Delivery Room Air 07/04/25 09:32 Lab Data Lab results reviewed: Yes I reviewed the patient's lab results. 07/04/25 09:39 07/04/25 09:39 Labs: Lab Results 07/04/25 Range/Units 09:39 WBC 13.8 H (4.5-10.0) K/mm3 RBC 4.81 (4.6-6.20) M/mm3 Hgb 15.0 D (14.0-18.0) g/dL Hct 45.2 (42.0-52.0) % MCV 94.0 (80-100) fl MCH 31.2 (26-34) pg MCHC 33.2 (32-36) g/dl RDW 13.0 (11.5-14.5) % Plt Count 266 (150-375) k/mm3 MPV 9.4 (7.4-10.4) fl Immature Gran % (Auto) 0.4 (0-0.5) % Neut % (Auto) 78.3 H (45.5-73.1) % Lymph % (Auto) 11.1 L (18.3-44.2) % [place] % (Auto) 9.7 H (2.6-8.5) % Eos % (Auto) 0.3 (0-4.4) % Baso % (Auto) 0.2 (0.2-1.2) % Lymph # (Auto) 1.53 (0.9-3.2) K/mm3 [place] # (Auto) 1.3 H (0.1-0.6) K/mm3 Eos # (Auto) 0.0 (0-0.3) K/mm3 Baso # (Auto) 0.0 (0.0-0.1) K/mm3 Abs Immat Gran (auto) 0.05 H (0.00-0.031) K/mm3 Absolute Neuts (auto) 10.8 H (1.3-6.7) K/mm3 Absolute Nucleated RBC 0.000 (0.0-0.012) K/mm3 Nucleated RBC % 0.0 (0.0-0.2) % Sodium 136 L (137-145) mmol/L Potassium 3.6 (3.4-5.0) mmol/L Chloride 103 (98-107) mmol/L Carbon Dioxide 27 (22-30) mmol/L Anion Gap 6 (4-12) mmol/L BUN 10 D (9-20) mg/dL Creatinine 0.55 L (0.7-1.3) mg/dL Estim Creat Clear Calc 135 ml/min Estimated GFR > 60 (59 - ) Glucose 135 H (65-110) mg/dL Calcium 8.6 (8.4-10.2) mg/dL Total Bilirubin 1.9 H (0.2-1.3) mg/dL AST 33 (17-59) U/L ALT 30 (6-50) U/L Alkaline Phosphatase 93 (38-126) U/L Total Protein 6.7 (6.3-8.2) g/dL Albumin 3.8 (3.5-5.1) g/dL Lipase 3931 H (23-300) U/L Imaging Data Radiologist's impression: Impressions Abdomen/Pelvis CT 07/04/25 10:37 IMPRESSION: 1. Acute pancreatitis, with mildly worsened surrounding fluid and inflammation from prior scan. 2. Focal pancreatic tail necrosis. 3. Mild scattered ascites. 4. Otherwise no acute abnormality. Discharge Plan Discharge Clinical Impression: Pancreatitis Patient Disposition: Still a Patient Condition: Stable
[2025-07-04] MEDS: HYDROmorphone HCL INJ (*CRX) 1 MG/ML SYR 0.5 MG IV PUSH ×3 (09:44→20:59)
[2025-07-04] MEDS: ONDANSETRON INJ 4 MG/2 ML VIAL IV PUSH (09:44)
[2025-07-04] MEDS: LACTATED RINGERS 1,000 ML 999 ML IV CONT ×2 (09:45→11:51)
[2025-07-04 09:49] LABS: Hematocrit 45.2 % (42.0-52.0); Hemoglobin 15.0 g/dL (14.0-18.0); Immature Granulocyte Percent A 0.4 % (0-0.5); Lymphocytes Absolute Auto 1.53 K/mm3 (0.9-3.2); Mean Corpuscular HGB Conc 33.2 g/dl (32-36); Mean Corpuscular Hemoglobin 31.2 pg (26-34); Mean Corpuscular Volume 94.0 fl (80-100); Nucleated Red Blood Cells Absolute Auto 0.000 K/mm3 (0.0-0.012); Nucleated Red Blood Cells Perc 0.0 % (0.0-0.2); Platelet Count Result 266 k/mm3 (150-375); Red Blood Count 4.81 M/mm3 (4.6-6.20); White Blood Count 13.8 K/mm3 (4.5-10.0)
[2025-07-04 10:13] LABS: Alanine Aminotransferase 30 U/L (6-50); Albumin Level 3.8 g/dL (3.5-5.1); Alkaline Phosphatase 93 U/L (38-126); Anion Gap 6 mmol/L (4-12); Aspartate Amino Transferase 33 U/L (17-59); Bilirubin,Total 1.9 mg/dL (0.2-1.3); Blood Urea Nitrogen 10 mg/dL (9-20); Calcium 8.6 mg/dL (8.4-10.2); Carbon Dioxide 27 mmol/L (22-30); Chloride 103 mmol/L (98-107); Estimated CRCL calculation 135 ml/min; Estimated Glomerular Filt Rate > 60; Glucose 135 mg/dL (65-110); Potassium 3.6 mmol/L (3.4-5.0); Sodium 136 mmol/L (137-145); Total Protein 6.7 g/dL (6.3-8.2)
[2025-07-04 10:47] LABS: Lipase 3931 U/L (23-300)
--- NOTE | 2025-07-04 11:28 | PC.NURSE ---
Pt asked multiple times by this RN if he needed to urinate, pt declining at this time. Pt refusing straight cath at this time
[2025-07-04] MEDS: HYDROmorphone HCL INJ (*CRX) 1 MG/ML SYR IV PUSH (11:51)
[2025-07-04 13:05] LABS: Non Pathogenic Casts 0-2
[2025-07-04 13:08] LABS: Add Urine Microscopic? YES; Appearance Urine Clear (Clear); Glucose Urine UA Negative (Negative); Leukocyte Esterase Ur Negative LEU/UL (Negative); Nitrate Urine Negative (Negative); Specific Grav Ur > 1.045 (1.001-1.035)
[2025-07-04] MEDS: LACTATED RINGERS 1,000 ML 125 ML IV CONT ×2 (13:26→20:59)
--- NOTE | 2025-07-04 13:34 | ADMGEN ---
This patient, Matt Carmen, was admitted to Medical Room 343-01. Patient/family oriented to hospital policies and general routines including ID bracelet, bed and alarms, visiting hours, pain management, procedures, bathroom and other care routines, personal items, smoking policy, room service/diet, and visiting hours. Information on how to activate the Rapid Response Team has been discussed. Patient/Family are encouraged to report perceived risks to care and to ask questions if they do not understand what they are told or what they should do.
--- NOTE | 2025-07-04 15:14 | PM.IMHP ---
H&P: HPI History of Present Illness Date/Time: 07/04/25 15:14 Chief Complaint: Abdominal pain, nausea, vomiting Narrative: 45-year-old male with past medical history of alcohol use disorder, recently admitted and discharged(05/31/2025) after being treated for acute pancreatitis presented with worsening abdominal pain, nausea, vomiting. He denies drinking alcohol since he was discharged last time. He used to drink 4-5 beers every day. Denies any other comorbidities. Complains of chills and rigors at home, denies any fever. Denies any diarrhea. Last bowel movement was yesterday. No history of gallstones. Triglycerides were not checked last time. Lipase was elevated up to [address] abdomen pelvis shows Acute pancreatitis, with mildly worsened surrounding fluid and inflammation from prior scan, Focal pancreatic tail necrosis, Mild scattered ascites. Lipase 3931 during this admission. Review of Systems Review of Systems: All systems reviewed & are unremarkable except as noted in HPI and below PMFSH Family History Family History Grandparent Acute myocardial infarction Cerebrovascular accident Mother Asthma Mother Diabetes mellitus Hypertension Other Prostate carcinoma Social History Social History Smoking status: Never smoker Alcohol intake: current Drinks per week: 1 Substance use: never Substance use type: does not use Lack of Transportation: No Lack of Food: Never True Current Housing: I Have Housing Concerned About Future Housing: No Difficulty Paying Gas/Electric Bills: No Difficulty Paying for Meds: No Currently Unemployed: No Education: High School Diploma/GED Difficulty w/ Childcare or Family Care: No Spiritual care concerns: No Meds Home Medications and Allergies Home Medications ?Medication ?Instructions ?Recorded ?Confirmed ?Type famotidine 20 mg tablet (Pepcid) 20 mg PO DAILY #30 tabs 05/31/25 07/04/25 Rx Allergies Allergy/AdvReac Type Severity Reaction Status Date / Time No Known Allergies Allergy Unknown Verified 07/04/25 09:17 Vital Signs Vital Signs - 24 hr 07/04/25 09:22 07/04/25 09:32 07/04/25 09:33 Temperature 97.9 F 98.4 F Pulse Rate 83 67 Respiratory Rate 16 20 Blood Pressure 147/89 H 134/89 Pulse Oximetry 99 97 98 Oxygen Delivery Room Air 07/04/25 09:34 07/04/25 09:46 07/04/25 10:38 Temperature Pulse Rate Respiratory Rate Blood Pressure 134/89 135/92 H Pulse Oximetry 97 98 99 Oxygen Delivery 07/04/25 10:45 07/04/25 11:00 07/04/25 11:15 Temperature Pulse Rate Respiratory Rate Blood Pressure Pulse Oximetry 97 98 98 Oxygen Delivery 07/04/25 11:30 07/04/25 11:45 07/04/25 13:00 Temperature Pulse Rate 67 Respiratory Rate 20 Blood Pressure 146/82 H Pulse Oximetry 99 97 98 Oxygen Delivery Exam Const: General: comfortable HENMT: Face/Nose/Sinus: Normal nares present Mouth: Yes moist mucous membranes Eyes: Sclera: sclerae normal Neck: Neck: supple Resp: Effort & Inspection: normal respiratory effort Auscultation: clear to auscultation bilaterally Cardio: Rate: regular rate Rhythm: regular rhythm GI: GI Palp: Yes Soft to palpation and Yes Tenderness to palpation present (GI) (Tenderness present and epigastrium, periumbilical) Auscultation: normal bowel sounds Skin: General skin exam: normal color Neuro: Speech: normal speech Extrem: General: normal to inspection Psych: Mental Status: mental status grossly normal H&P: Results Labs Labs: Short CBC 07/04/25 Range/Units 09:39 WBC 13.8 H (4.5-10.0) K/mm3 Hgb 15.0 D (14.0-18.0) g/dL Hct 45.2 (42.0-52.0) % Plt Count 266 (150-375) k/mm3 BMP 07/04/25 09:39 Sodium 136 L Potassium 3.6 Chloride 103 Carbon Dioxide 27 BUN 10 D Creatinine 0.55 L Glucose 135 H Calcium 8.6 Liver Function 07/04/25 Range/Units 09:39 Total Bilirubin 1.9 H (0.2-1.3) mg/dL AST 33 (17-59) U/L ALT 30 (6-50) U/L Alkaline Phosphatase 93 (38-126) U/L Albumin 3.8 (3.5-5.1) g/dL Urine 07/04/25 Range/Units 12:52 Urine Color Light red H (Yellow) Urine Appearance Clear (Clear) Urine pH 6.5 (5.0-9.0) Ur Specific [place] > 1.045 H (1.001-1.035) Urine Protein Negative (Negative) mg/dL Urine Glucose (UA) Negative (Negative) mg/dL Assessment and Plan Assessment and plan (1) Pancreatitis: Code(s): K85.90 - Acute pancreatitis without necrosis or infection, unspecified Status: Acute (2) Leukocytosis: Code(s): D72.829 - Elevated white blood cell count, unspecified Status: Acute Plan 45-year-old male with past medical history of alcohol use disorder, recent history of pancreatitis, almost a month ago presenting with acute abdominal pain along with nausea vomiting, CT abdomen suggestive of acute pancreatitis with focal tail necrosis. Patient denies drinking alcohol this time. 1. Acute pancreatitis: Unclear if he is drinking although he is denying Admit to medicine IV fluids NPO Pain control Zofran p.r.n. for nausea Update lipid panel Update blood culture Will start on Zosyn for focal tail necrosis, noted leukocytosis GI consult Serial abdominal exam PPI IV b.i.d. Will start on CIWA protocol Obtain blood alcohol levels Start on IV folic acid, IV thiamine supplementation 2. DVT prophylaxis: Heparin subQ 3. Code status: Full 4. Disposition: Admit to General Medicine Quality VTE Prophylaxis VTE prophylaxis: pharmacologic ordered Hospitalist MIPS Advance Care Plan I have confirmed that the patient's Advanced Care Plan is present, code status is documented, or surrogate decision maker is listed in patient medical record.: Yes Medication Reconciliation I have utilized all available resources to obtain, update and review the patients current medications (includes all prescriptions, OTC, herbals, cannabis, and nutritional supplements).: Yes
[2025-07-04 16:28] LABS: Cholesterol 132 mg/dL (0-200); HDL Direct 52 mg/dL; Triglycerides 118 mg/dL (<150)
[2025-07-04] MEDS: PIPERACILLIN/TAZOBACTAM SOD 3.375 GM in SODIUM CHLORIDE 0.9% IV 50 ML 100 ML IVPB ×2 (16:40→21:02)
[2025-07-04] MEDS: chlordiazePOXIDE (*CRX) 25 MG CAPSULE PO (18:46)
[2025-07-04] MEDS: PANTOPRAZOLE SODIUM IV 40 MG VIAL IV PUSH (21:01)
[2025-07-05] MEDS: chlordiazePOXIDE (*CRX) 25 MG CAPSULE PO (03:50)
[2025-07-05] MEDS: PIPERACILLIN/TAZOBACTAM SOD 3.375 GM in SODIUM CHLORIDE 0.9% IV 50 ML 100 ML IVPB ×4 (03:50→20:51)
[2025-07-05] MEDS: HYDROmorphone HCL INJ (*CRX) 1 MG/ML SYR 0.5 MG IV PUSH ×5 (04:13→23:59)
[2025-07-05 05:57] LABS: Hematocrit 40.4 % (42.0-52.0); Hemoglobin 13.3 g/dL (14.0-18.0); Immature Granulocyte Percent A 0.3 % (0-0.5); Lymphocytes Absolute Auto 1.49 K/mm3 (0.9-3.2); Mean Corpuscular HGB Conc 32.9 g/dl (32-36); Mean Corpuscular Hemoglobin 31.4 pg (26-34); Mean Corpuscular Volume 95.3 fl (80-100); Nucleated Red Blood Cells Absolute Auto 0.000 K/mm3 (0.0-0.012); Nucleated Red Blood Cells Perc 0.0 % (0.0-0.2); Platelet Count Result 231 k/mm3 (150-375); Red Blood Count 4.24 M/mm3 (4.6-6.20); White Blood Count 7.9 K/mm3 (4.5-10.0)
[2025-07-05 06:00] VITALS: BP 123/74; PULSE 61; RESP 18; TEMP 36.2; O2SAT 97
[2025-07-05 06:09] LABS: Alanine Aminotransferase 18 U/L (6-50); Albumin Level 3.0 g/dL (3.5-5.1); Alkaline Phosphatase 79 U/L (38-126); Anion Gap 3 mmol/L (4-12); Aspartate Amino Transferase 26 U/L (17-59); Bilirubin,Total 1.3 mg/dL (0.2-1.3); Blood Urea Nitrogen 6 mg/dL (9-20); Calcium 8.1 mg/dL (8.4-10.2); Carbon Dioxide 29 mmol/L (22-30); Chloride 101 mmol/L (98-107); Estimated CRCL calculation 133 ml/min; Estimated Glomerular Filt Rate > 60; Glucose 92 mg/dL (65-110); Magnesium 1.8 mg/dL (1.6-2.3); Potassium 3.4 mmol/L (3.4-5.0); Sodium 133 mmol/L (137-145); Total Protein 5.7 g/dL (6.3-8.2)
--- NOTE | 2025-07-05 08:01 | WPDGIPROGNO ---
Subjective Date/time seen: 07/05/25 08:01 Objective Data Vital Signs Vital Signs: Vital Signs - 24 hr 07/04/25 09:22 07/04/25 09:32 07/04/25 09:33 Temperature 97.9 F 98.4 F Pulse Rate 83 67 Pulse Rate [Right Radial Palpation] Respiratory Rate 16 20 Blood Pressure 147/89 H 134/89 Pulse Oximetry 99 97 98 Oxygen Delivery Room Air 07/04/25 09:34 07/04/25 09:46 07/04/25 10:38 Temperature Pulse Rate Pulse Rate [Right Radial Palpation] Respiratory Rate Blood Pressure 134/89 135/92 H Pulse Oximetry 97 98 99 Oxygen Delivery 07/04/25 10:45 07/04/25 11:00 07/04/25 11:15 Temperature Pulse Rate Pulse Rate [Right Radial Palpation] Respiratory Rate Blood Pressure Pulse Oximetry 97 98 98 Oxygen Delivery 07/04/25 11:30 07/04/25 11:45 07/04/25 13:00 Temperature Pulse Rate 67 Pulse Rate [Right Radial Palpation] Respiratory Rate 20 Blood Pressure 146/82 H Pulse Oximetry 99 97 98 Oxygen Delivery 07/04/25 13:05 07/04/25 14:00 07/04/25 20:00 Temperature 98.3 F Pulse Rate 69 Pulse Rate [Right Radial Palpation] 62 Respiratory Rate 18 Blood Pressure 143/86 H Pulse Oximetry 99 Oxygen Delivery Room Air 07/04/25 20:00 07/04/25 22:03 07/05/25 06:00 Temperature 97.1 F L 97.2 F L Pulse Rate 56 L 61 Pulse Rate [Right Radial Palpation] Respiratory Rate 20 18 Blood Pressure 131/87 123/74 Pulse Oximetry 98 97 Oxygen Delivery Room Air Intake/Output Intake/Output: Intake & Output 07/02/25 07/03/25 07/04/25 07/05/25 23:59 23:59 23:59 23:59 Intake Total 3043.8 50 Balance 3043.8 50 Meds/Results Medications: Active Medications Generic Name Dose Route Start Last Admin Trade Name Freq PRN Reason Stop Dose Admin Chlordiazepoxide HCl 25 mg 07/04/25 19:00 07/05/25 03:50 Chlordiazepoxide (*Crx) 25 Mg Capsule PO 25 mg Q8H HUDSON Administration Diazepam 5 - 10 mg 07/04/25 14:53 Diazepam Inj (*Crx) 10 Mg/2 Ml Syringe IV PUSH Q5M PRN CIWA > 15 Folic Acid 1 mg 07/05/25 09:00 Folic Acid 1 Mg/0.2 Ml Inj IV PUSH DAILY HUDSON Heparin Sodium (Porcine) 5,000 units 07/04/25 22:00 07/05/25 06:42 Heparin Sodium 5,000 Units/Ml Vial SUB-Q 5,000 units Q8HR HUDSON Administration Hydromorphone HCl 0.5 mg 07/04/25 14:46 07/05/25 04:13 Hydromorphone Hcl Inj (*Crx) 1 Mg/Ml Syr IV PUSH 0.5 mg Q2HR PRN Administration Pain Rated 7-10 Lactated Ringer's 1,000 mls @ 125 mls/hr 07/04/25 11:20 07/04/25 20:59 Lr - Lactated Ringers Iv IV CONT 125 mls/hr .Q8H HUDSON Administration Piperacillin Sod/Tazobactam 50 mls @ 100 mls/hr 07/04/25 15:00 07/05/25 04:20 Sod 3.375 gm/ Sodium Chloride IVPB Infused Q6H HUDSON Infusion Ondansetron HCl 4 mg 07/04/25 14:46 Ondansetron Inj 4 Mg/2 Ml Vial IV PUSH Q4H PRN Nausea And Vomiting Pantoprazole Sodium 40 mg 07/04/25 21:00 07/04/25 21:01 Pantoprazole Sodium Iv 40 Mg Vial IV PUSH 40 mg Q12HR HUDSON Administration Thiamine HCl 100 mg 07/05/25 09:00 Thiamine Hcl 200 Mg/2 Ml Vial IV PUSH DAILY [facility] Radiology Results: ITS Impressions Abdomen/Pelvis CT 07/04/25 10:37 IMPRESSION: 1. Acute pancreatitis, with mildly worsened surrounding fluid and inflammation from prior scan. 2. Focal pancreatic tail necrosis. 3. Mild scattered ascites. 4. Otherwise no acute abnormality. Labs Labs: Laboratory Results - last 24 hr 07/04/25 07/04/25 07/04/25 09:39 12:52 15:59 WBC 13.8 H RBC 4.81 Hgb 15.0 D Hct 45.2 MCV 94.0 MCH 31.2 MCHC 33.2 RDW 13.0 Plt Count 266 MPV 9.4 Immature Gran % (Auto) 0.4 Neut % (Auto) 78.3 H Lymph % (Auto) 11.1 L [place] % (Auto) 9.7 H Eos % (Auto) 0.3 Baso % (Auto) 0.2 Lymph # (Auto) 1.53 [place] # (Auto) 1.3 H Eos # (Auto) 0.0 Baso # (Auto) 0.0 Abs Immat Gran (auto) 0.05 H Absolute Neuts (auto) 10.8 H Absolute Nucleated RBC 0.000 Nucleated RBC % 0.0 Sodium 136 L Potassium 3.6 Chloride 103 Carbon Dioxide 27 Anion Gap 6 BUN 10 D Creatinine 0.55 L Estim Creat Clear Calc 135 Estimated GFR > 60 Glucose 135 H POC Capillary Glucose Calcium 8.6 Magnesium Total Bilirubin 1.9 H AST 33 ALT 30 Alkaline Phosphatase 93 Total Protein 6.7 Albumin 3.8 Triglycerides 118 Cholesterol 132 LDL Cholesterol Direct 57 HDL Direct 52 Lipase 3931 H Urine Color Light red H Urine Appearance Clear Urine pH 6.5 Ur Specific [place] > 1.045 H Urine Protein Negative Urine Glucose (UA) Negative Urine Ketones Negative Ur Blood (Man) Non-hemolyzed trace Urine Nitrate Negative Urine Bilirubin Negative Urine Urobilinogen 0.2 Leukocyte Esterase Rfl Negative Urine RBC 3-5 H Urine WBC 0-5 Ur Squamous Epith Cells None seen Urine Bacteria None seen Urine Casts 0-2 Ethyl Alcohol 07/04/25 07/04/25 07/04/25 16:12 18:14 23:54 WBC RBC Hgb Hct MCV MCH MCHC RDW Plt Count MPV Immature Gran % (Auto) Neut % (Auto) Lymph % (Auto) [place] % (Auto) Eos % (Auto) Baso % (Auto) Lymph # (Auto) [place] # (Auto) Eos # (Auto) Baso # (Auto) Abs Immat Gran (auto) Absolute Neuts (auto) Absolute Nucleated RBC Nucleated RBC % Sodium Potassium Chloride Carbon Dioxide Anion Gap BUN Creatinine Estim Creat Clear Calc Estimated GFR Glucose POC Capillary Glucose 111 H 95 Calcium Magnesium Total Bilirubin AST ALT Alkaline Phosphatase Total Protein Albumin Triglycerides Cholesterol LDL Cholesterol Direct HDL Direct Lipase Urine Color Urine Appearance Urine pH Ur Specific [place] Urine Protein Urine Glucose (UA) Urine Ketones Ur Blood (Man) Urine Nitrate Urine Bilirubin Urine Urobilinogen Leukocyte Esterase Rfl Urine RBC Urine WBC Ur Squamous Epith Cells Urine Bacteria Urine Casts Ethyl Alcohol < 10 07/05/25 07/05/25 05:23 06:41 WBC 7.9 RBC 4.24 L Hgb 13.3 L Hct 40.4 L MCV 95.3 MCH 31.4 MCHC 32.9 RDW 12.6 Plt Count 231 MPV 9.3 Immature Gran % (Auto) 0.3 Neut % (Auto) 63.4 Lymph % (Auto) 18.9 [place] % (Auto) 9.8 H Eos % (Auto) 7.2 H Baso % (Auto) 0.4 Lymph # (Auto) 1.49 [place] # (Auto) 0.8 H Eos # (Auto) 0.6 H Baso # (Auto) 0.0 Abs Immat Gran (auto) 0.02 Absolute Neuts (auto) 5.0 Absolute Nucleated RBC 0.000 Nucleated RBC % 0.0 Sodium 133 L Potassium 3.4 Chloride 101 Carbon Dioxide 29 Anion Gap 3 L BUN 6 L Creatinine 0.56 L Estim Creat Clear Calc 133 Estimated GFR > 60 Glucose 92 POC Capillary Glucose 90 Calcium 8.1 L Magnesium 1.8 Total Bilirubin 1.3 AST 26 ALT 18 Alkaline Phosphatase 79 Total Protein 5.7 L Albumin 3.0 L Triglycerides Cholesterol LDL Cholesterol Direct HDL Direct Lipase Urine Color Urine Appearance Urine pH Ur Specific [place] Urine Protein Urine Glucose (UA) Urine Ketones Ur Blood (Man) Urine Nitrate Urine Bilirubin Urine Urobilinogen Leukocyte Esterase Rfl Urine RBC Urine WBC Ur Squamous Epith Cells Urine Bacteria Urine Casts Ethyl Alcohol
--- NOTE | 2025-07-05 08:02 | P.CONGI_ITS ---
Assessment and Plan Assessment and plan (1) Pancreatitis: Qualifiers: Acute pancreatitis complication: uninfected necrosis Chronicity: acute Pancreatitis type: alcohol induced Qualified Code(s): K85.21 - Alcohol induced acute pancreatitis with uninfected necrosis Code(s): K85.90 - Acute pancreatitis without necrosis or infection, unspecified Status: Acute (2) Hepatomegaly: Code(s): R16.0 - Hepatomegaly, not elsewhere classified Status: Acute (3) Alcohol use: Code(s): F10.90 - Alcohol use, unspecified, uncomplicated Status: Acute (4) Nausea and vomiting: Qualifiers: Vomiting type: bilious vomiting Qualified Code(s): R11.14 - Bilious vomiting Code(s): R11.2 - Nausea with vomiting, unspecified Status: Acute (5) Decreased appetite: Code(s): R63.0 - Anorexia Status: Acute (6) Dysphagia: Qualifiers: Dysphagia type: esophageal phase Qualified Code(s): R13.19 - Other dysphagia Code(s): R13.10 - Dysphagia, unspecified Status: Acute Plan 1. Pancreatitis with necrosis/ETOH abuse/abdominal pain: Patient has never had a colonoscopy or EGD. Patient admitted for [facility] 05/27-05/31 for ETOH related pancreatitis. He then returned to the ER yesterday with complaints of worsening abdominal pain. Pain was more epigastric but is now more generalized and improved since admission. Patient was previously drinking up to 10 beers per day and 2 pint of hard alcohol per week. He denies any alcohol use x 2 weeks. Labs today shows WBC's 14-->8, HGB 13, HCT 40, MCV 95, platelets 231, BUN 6 creatinine 0.56. No concerning changes in kidney function. * no indication for surgical or endoscopic intervention * continued alcohol cessation remains the most important thing for the patient, he verbalized understanding * continue supportive care with IV fluids, pain management, antiemetics * early oral intake as tolerated 2. Nausea/vomiting/odynophagia/dysphagia/reflux/decreased appetite: Patient has never had an EGD. Admits to nausea and vomiting with oral intake worse [employer]. Upper abdominal pain has improved but not resolved. Patient states that recently he has been having reflux symptoms but has not tried any OTC antacids. Admits to pain and difficulty with swallowing with solids, liquids and pills that is intermittent but worse recently. Problem #1 may be a contributing cause. * Continue BID PPI * further workup can be done outpatient once acute illness has resolved as patient will likely need an EGD and colonoscopy Thank you very much for allowing me to share in the care of this very nice patient. This report may have been done utilizing a voice recognition system. Attempts have been made to correct errors. However, there may be uncorrected grammatical, spelling, and recognition errors present. GI Consult Note Consult date/time: 07/05/25 08:02 Reason for consult: Pancreatitis HPI: Matt Carmen is a 45 year old male with Hx of alcohol related pancreatitis. He was recently admitted at [place] 05/27-05/31 for pancreatitis. He presented to the ER yesterday with complaints of worsening abdominal pain. GI has been consulted for pancreatitis. Patient states that a few days prior to this admission he started having a poor appetite, pain and difficulty swallowing, nausea, vomiting, reflux and upper abdominal pain. He abdominal pain has improved but not resolved since admission and is more generalized in nature and increases with palpation. Nausea and vomiting was occurring after oral intake. Prior to admission he was having daily BM's that were formed and non urgent. Denies bloating, regurgitation, early satiety, unexplained weight loss, diarrhea, constipation, hematochezia or melena. Denies NSAID, aspirin or anticoag use. He was previously drinking up to 10 beers daily along with 2 pints of hard liquid per week, he denies any alcohol use x 2 weeks. Denies tobacco or marijuana use. Family Hx negative for GI cancer or IBD. ENDOSCOPY HISTORY: EGD: Patient has never had an EGD COLONOSCOPY: Patient has never had a colonoscopy LABS AND STOOL STUDIES: Labs 07/05/2025: Sodium 133, potassium 3.4, BUN 6, creatinine 0.56, GFR >60, calcium 8.1 WBC 8, Hgb 13, Hct 40, MCV 95, platelets 231 Total bilirubin 1.3, AST 26, ALT 18, Alkaline Phos 79, albumin 3.0 Lipase 3931 and ETOH <10 IMAGING: CT abd/pelvis w/contrast 07/04/2025: IMPRESSION: 1. Acute pancreatitis, with mildly worsened surrounding fluid and inflammation from prior scan. 2. Focal pancreatic tail necrosis. 3. Mild scattered ascites. 4. Otherwise no acute abnormality. Abdominal Ultrasound 05/27/2025: IMPRESSION: Limited evaluation of the pancreas secondary to overlying bowel gas No stones within the gallbladder. Redemonstration of hepatomegaly CT abd/pelvis w/contrast 05/27/2025: IMPRESSION: Acute pancreatitis without evidence of necrosis or drainable fluid collection Review of Systems 2 Constitutional: Constitutional: Reports as per HPI ENT: Reports as per HPI Cardiovascular: Cardiovascular: Reports as per HPI, Denies chest pain and Denies dyspnea Respiratory: Respiratory: Denies cough and Denies dyspnea Gastrointestinal: Gastrointestinal: Reports as per HPI Musculoskeletal: Musculoskeletal: Reports as per HPI Integumentary/Breasts: Skin/Breast: Reports as per HPI Psychiatric: Psychiatric: Reports as per HPI Endocrine: Endocrine: Reports no additional endocrine complaints Hematologic/Lymphatic: Hematologic/Lymphatic: Reports no additional hematologic/lymphatic complaints [facility] Family History Family History Grandparent Acute myocardial infarction Cerebrovascular accident Mother Asthma Mother Diabetes mellitus Hypertension Other Prostate carcinoma Social History Social History Smoking status: Never smoker Alcohol intake: current Drinks per week: 1 Substance use: never Substance use type: does not use Lack of Transportation: No Lack of Food: Never True Current Housing: I Have Housing Concerned About Future Housing: No Difficulty Paying Gas/Electric Bills: No Difficulty Paying for Meds: No Currently Unemployed: No Education: High School Diploma/GED Difficulty w/ Childcare or Family Care: No Spiritual care concerns: No Meds Home Medications and Allergies Home Medications ?Medication ?Instructions ?Recorded ?Confirmed ?Type famotidine 20 mg tablet (Pepcid) 20 mg PO DAILY #30 ta bs 05/31/25 07/04/25 Rx Allergies Allergy/AdvReac Type Severity Reaction Status Date / Time No Known Allergies Allergy Unknown Verified 07/04/25 09:17 Vital Signs Vital Signs - 24 hr 07/04/25 09:22 07/04/25 09:32 07/04/25 09:33 Temperature 97.9 F 98.4 F Pulse Rate 83 67 Pulse Rate [Right Radial Palpation] Respiratory Rate 16 20 Blood Pressure 147/89 H 134/89 Pulse Oximetry 99 97 98 Oxygen Delivery Room Air 07/04/25 09:34 07/04/25 09:46 07/04/25 10:38 Temperature Pulse Rate Pulse Rate [Right Radial Palpation] Respiratory Rate Blood Pressure 134/89 135/92 H Pulse Oximetry 97 98 99 Oxygen Delivery 07/04/25 10:45 07/04/25 11:00 07/04/25 11:15 Temperature Pulse Rate Pulse Rate [Right Radial Palpation] Respiratory Rate Blood Pressure Pulse Oximetry 97 98 98 Oxygen Delivery 07/04/25 11:30 07/04/25 11:45 07/04/25 13:00 Temperature Pulse Rate 67 Pulse Rate [Right Radial Palpation] Respiratory Rate 20 Blood Pressure 146/82 H Pulse Oximetry 99 97 98 Oxygen Delivery 07/04/25 13:05 07/04/25 14:00 07/04/25 20:00 Temperature 98.3 F Pulse Rate 69 Pulse Rate [Right Radial Palpation] 62 Respiratory Rate 18 Blood Pressure 143/86 H Pulse Oximetry 99 Oxygen Delivery Room Air 07/04/25 20:00 07/04/25 22:03 07/05/25 06:00 Temperature 97.1 F L 97.2 F L Pulse Rate 56 L 61 Pulse Rate [Right Radial Palpation] Respiratory Rate 20 18 Blood Pressure 131/87 123/74 Pulse Oximetry 98 97 Oxygen Delivery Room Air Exam 2 Const: General: cooperative, healthy appearing, comfortable, no acute distress and well developed Orientation/consciousness: oriented to person, oriented to place, oriented to time and patient oriented x3 HENMT: Head: normal to inspection, normocephalic and atraumatic Mouth: Yes Normal oral and palatal mucosa present and Yes moist mucous membranes Eyes: General: appearance normal, both eyes and all related structures C onjunctivae: conjunctivae normal Sclera: sclerae normal Pupils: Equal, round and reactive pupils present Neck: Neck: normal visual inspection Chest: Chest palpation & inspection: normal inspection of the chest Resp: Effort & Inspection: normal respiratory effort and able to speak in complete sentences Auscultation: clear to auscultation bilaterally Cardio: Jugular venous distension: no JVD Rate: regular rate Rhythm: r egular rhythm Heart sounds: S1 normal heart sound present and S2 normal heart sound present GI: GI Palp: Yes Soft to palpation, Yes Tenderness to palpation present (GI) (generalized tenderness with palpation), No Guarding due to palpation present (GI) and Yes No hepatosplenomegaly present Auscultation: normal bowel sounds Rectal Exam: deferred Skin: General skin exam: normal color and no rashes or lesions noted Neuro: General: oriented to person, oriented to place, oriented to time and patient oriented x3 Cranial nerves: Yes Equal, round and reactive pupils present Speech: normal speech Extrem: General: normal to inspection and no clubbing, cyanosis or edema Psych: Appearance: grossly normal and well kempt Affect: normal affect Results Labs 07/05/25 05:23 07/05/25 05:23 Labs: Short CBC 07/04/25 07/05/25 Range/Units 09:39 05:23 WBC 13.8 H 7.9 (4.5-10.0) K/mm3 Hgb 15.0 D 13.3 L (14.0-18.0) g/dL Hct 45.2 40.4 L (42.0-52.0) % Plt Count 266 231 (150-375) k/mm3 BMP 07/04/25 07/05/25 09:39 05:23 Sodium 136 L 133 L Potassium 3.6 3.4 Chloride 103 101 Carbon Dioxide 27 29 BUN 10 D 6 L Creatinine 0.55 L 0.56 L Glucose 135 H 92 Calcium 8.6 8.1 L Liver Function 07/04/25 07/05/25 Range/Units 09:39 05:23 Total Bilirubin 1.9 H 1.3 (0.2-1.3) mg/dL AST 33 26 (17-59) U/L ALT 30 18 (6-50) U/L Alkaline Phosphatase 93 79 (38-126) U/L Albumin 3.8 3.0 L (3.5-5.1) g/dL Urine 07/04/25 Range/Units 12:52 Urine Color Light red H (Yellow) Urine Appearance Clear (Clear) Urine pH 6.5 (5.0-9.0) Ur Specific [place] > 1.045 H (1.001-1.035) Urine Protein Negative (Negative) mg/dL Urine Glucose (UA) Negative (Negative) mg/dL
[2025-07-05] MEDS: PANTOPRAZOLE SODIUM IV 40 MG VIAL IV PUSH ×2 (09:02→20:49)
[2025-07-05] MEDS: POTASSIUM CHLORIDE 20 MEQ PACKET (FOR LIQUID) 40 MEQ PO ×2 (09:02→17:27)
[2025-07-05] MEDS: THIAMINE HCL 200 MG/2 ML VIAL 100 MG IV PUSH (09:02)
[2025-07-05] MEDS: FOLIC ACID 1 MG/0.2 ML INJ IV PUSH (09:02)
[2025-07-05] MEDS: LACTATED RINGERS 1,000 ML 125 ML IV CONT ×2 (09:03→20:51)
--- NOTE | 2025-07-05 11:13 | PM.IMPN ---
Progress Note: A&P Assessment and Plan (1) Pancreatitis: Qualifiers: Acute pancreatitis complication: uninfected necrosis Chronicity: acute Pancreatitis type: alcohol induced Qualified Code(s): K85.21 - Alcohol induced acute pancreatitis with uninfected necrosis Code(s): K85.90 - Acute pancreatitis without necrosis or infection, unspecified Status: Acute (2) Leukocytosis: Code(s): D72.829 - Elevated white blood cell count, unspecified Status: Acute Plan 45-year-old male with past medical history of alcohol use disorder, recent history of pancreatitis, almost a month ago presenting with acute abdominal pain along with nausea vomiting, CT abdomen suggestive of acute pancreatitis with focal tail necrosis. Patient denies drinking alcohol this time. 1. Acute pancreatitis: Unclear if he is drinking although he is denying Alcohol level was unremarkable Continue with IV fluids NPO except sips the meds Pain control Zofran p.r.n. for nausea Triglyceride levels unremarkable Follow-up blood cultures Continue with Zosyn for focal tail necrosis Leukocytosis has resolved Appreciate GI consult Serial abdominal exam PPI IV b.i.d. Continue with CIWA protocol Continue with Librium p.r.n. Continue with IV folic acid, IV thiamine supplementation 2. DVT prophylaxis: Heparin subQ 3. Code status: Full 4. Disposition: Pending improvement Time Spent With Patient Time: 38 minutes Subjective Date/time seen: 07/05/25 11:13 Interval history: Continues to have abdominal discomfort, improved with pain medications Denies any nausea, vomiting right now Review of Systems Review of Systems: All systems reviewed & are unremarkable except as noted in HPI and below Exam Const: General: comfortable HENMT: Face/Nose/Sinus: Normal nares present Mouth: Yes moist mucous membranes Eyes: Sclera: sclerae normal Neck: Neck: supple Resp: Effort & Inspection: normal respiratory effort Auscultation: clear to auscultation bilaterally Cardio: Rate: regular rate Rhythm: regular rhythm GI: GI Palp: Yes Soft to palpation and Yes Tenderness to palpation present (GI) (Tenderness present and epigastrium, periumbilical) Auscultation: normal bowel sounds Skin: General skin exam: normal color Neuro: Speech: normal speech Extrem: General: normal to inspection Psych: Mental Status: mental status grossly normal Objective Data Vital Signs Vital Signs: Vital Signs - 24 hr 07/04/25 11:15 07/04/25 11:30 07/04/25 11:45 Temperature Pulse Rate Pulse Rate [Right Radial Palpation] Respiratory Rate Blood Pressure Pulse Oximetry 98 99 97 Oxygen Delivery 07/04/25 13:00 07/04/25 13:05 07/04/25 14:00 Temperature 98.3 F Pulse Rate 67 69 Pulse Rate [Right Radial Palpation] Respiratory Rate 20 18 Blood Pressure 146/82 H 143/86 H Pulse Oximetry 98 99 Oxygen Delivery Room Air 07/04/25 20:00 07/04/25 20:00 07/04/25 22:03 Temperature 97.1 F L Pulse Rate 56 L Pulse Rate [Right Radial Palpation] 62 Respiratory Rate 20 Blood Pressure 131/87 Pulse Oximetry 98 Oxygen Delivery Room Air 07/05/25 06:00 Temperature 97.2 F L Pulse Rate 61 Pulse Rate [Right Radial Palpation] Respiratory Rate 18 Blood Pressure 123/74 Pulse Oximetry 97 Oxygen Delivery Intake/Output Intake/Output: Intake & Output 07/02/25 07/03/25 07/04/25 07/05/25 23:59 23:59 23:59 23:59 Intake Total 3043.8 1050 Balance 3043.8 1050 Meds/Results Medications: Active Medications Generic Name Dose Route Start Last Admin Trade Name Freq PRN Reason Stop Dose Admin Diazepam 5 - 10 mg 07/04/25 14:53 Diazepam Inj (*Crx) 10 Mg/2 Ml Syringe IV PUSH Q5M PRN CIWA > 15 Folic Acid 1 mg 07/05/25 09:00 07/05/25 09:02 Folic Acid 1 Mg/0.2 Ml Inj IV PUSH 1 mg DAILY HUDSON Administration Heparin Sodium (Porcine) 5,000 units 07/04/25 22:00 07/05/25 06:42 Heparin Sodium 5,000 Units/Ml Vial SUB-Q 5,000 units Q8HR HUDSON Administration Hydromorphone HCl 0.5 mg 07/04/25 14:46 07/05/25 09:24 Hydromorphone Hcl Inj (*Crx) 1 Mg/Ml Syr IV PUSH 0.5 mg Q2HR PRN Administration Pain Rated 7-10 Lactated Ringer's 1,000 mls @ 125 mls/hr 07/04/25 11:20 07/05/25 09:03 Lr - Lactated Ringers Iv IV CONT 125 mls/hr .Q8H HUDSON Administration Piperacillin Sod/Tazobactam 50 mls @ 100 mls/hr 07/04/25 15:00 07/05/25 09:02 Sod 3.375 gm/ Sodium Chloride IVPB 100 mls/hr Q6H HUDSON Administration Ondansetron HCl 4 mg 07/04/25 14:46 Ondansetron Inj 4 Mg/2 Ml Vial IV PUSH Q4H PRN Nausea And Vomiting Pantoprazole Sodium 40 mg 07/04/25 21:00 07/05/25 09:02 Pantoprazole Sodium Iv 40 Mg Vial IV PUSH 40 mg Q12HR HUDSON Administration Potassium Chloride 40 meq 07/05/25 09:00 07/05/25 09:02 Potassium Chloride 20 Meq Packet (For Liquid) PO 07/05/25 17:01 40 meq BID HUDSON Administration Thiamine HCl 100 mg 07/05/25 09:00 07/05/25 09:02 Thiamine Hcl 200 Mg/2 Ml Vial IV PUSH 100 mg DAILY HUDSON Administration Radiology Results: ITS Impressions Abdomen/Pelvis CT 07/04/25 10:37 IMPRESSION: 1. Acute pancreatitis, with mildly worsened surrounding fluid and inflammation from prior scan. 2. Focal pancreatic tail necrosis. 3. Mild scattered ascites. 4. Otherwise no acute abnormality. Labs Labs: Laboratory Results - last 24 hr 07/04/25 07/04/25 07/04/25 12:52 15:59 16:12 WBC RBC Hgb Hct MCV MCH MCHC RDW Plt Count MPV Immature Gran % (Auto) Neut % (Auto) Lymph % (Auto) [place] % (Auto) Eos % (Auto) Baso % (Auto) Lymph # (Auto) [place] # (Auto) Eos # (Auto) Baso # (Auto) Abs Immat Gran (auto) Absolute Neuts (auto) Absolute Nucleated RBC Nucleated RBC % Sodium Potassium Chloride Carbon Dioxide Anion Gap BUN Creatinine Estim Creat Clear Calc Estimated GFR Glucose POC Capillary Glucose Calcium Magnesium Total Bilirubin AST ALT Alkaline Phosphatase Total Protein Albumin Triglycerides 118 Cholesterol 132 LDL Cholesterol Direct 57 HDL Direct 52 Urine Color Light red H Urine Appearance Clear Urine pH 6.5 Ur Specific [place] > 1.045 H Urine Protein Negative Urine Glucose (UA) Negative Urine Ketones Negative Ur Blood (Man) Non-hemolyzed trace Urine Nitrate Negative Urine Bilirubin Negative Urine Urobilinogen 0.2 Leukocyte Esterase Rfl Negative Urine RBC 3-5 H Urine WBC 0-5 Ur Squamous Epith Cells None seen Urine Bacteria None seen Urine Casts 0-2 Ethyl Alcohol < 10 07/04/25 07/04/25 07/05/25 18:14 23:54 05:23 WBC 7.9 RBC 4.24 L Hgb 13.3 L Hct 40.4 L MCV 95.3 MCH 31.4 MCHC 32.9 RDW 12.6 Plt Count 231 MPV 9.3 Immature Gran % (Auto) 0.3 Neut % (Auto) 63.4 Lymph % (Auto) 18.9 [place] % (Auto) 9.8 H Eos % (Auto) 7.2 H Baso % (Auto) 0.4 Lymph # (Auto) 1.49 [place] # (Auto) 0.8 H Eos # (Auto) 0.6 H Baso # (Auto) 0.0 Abs Immat Gran (auto) 0.02 Absolute Neuts (auto) 5.0 Absolute Nucleated RBC 0.000 Nucleated RBC % 0.0 Sodium 133 L Potassium 3.4 Chloride 101 Carbon Dioxide 29 Anion Gap 3 L BUN 6 L Creatinine 0.56 L Estim Creat Clear Calc 133 Estimated GFR > 60 Glucose 92 POC Capillary Glucose 111 H 95 Calcium 8.1 L Magnesium 1.8 Total Bilirubin 1.3 AST 26 ALT 18 Alkaline Phosphatase 79 Total Protein 5.7 L Albumin 3.0 L Triglycerides Cholesterol LDL Cholesterol Direct HDL Direct Urine Color Urine Appearance Urine pH Ur Specific [place] Urine Protein Urine Glucose (UA) Urine Ketones Ur Blood (Man) Urine Nitrate Urine Bilirubin Urine Urobilinogen Leukocyte Esterase Rfl Urine RBC Urine WBC Ur Squamous Epith Cells Urine Bacteria Urine Casts Ethyl Alcohol 07/05/25 06:41 WBC RBC Hgb Hct MCV MCH MCHC RDW Plt Count MPV Immature Gran % (Auto) Neut % (Auto) Lymph % (Auto) [place] % (Auto) Eos % (Auto) Baso % (Auto) Lymph # (Auto) [place] # (Auto) Eos # (Auto) Baso # (Auto) Abs Immat Gran (auto) Absolute Neuts (auto) Absolute Nucleated RBC Nucleated RBC % Sodium Potassium Chloride Carbon Dioxide Anion Gap BUN Creatinine Estim Creat Clear Calc Estimated GFR Glucose POC Capillary Glucose 90 Calcium Magnesium Total Bilirubin AST ALT Alkaline Phosphatase Total Protein Albumin Triglycerides Cholesterol LDL Cholesterol Direct HDL Direct Urine Color Urine Appearance Urine pH Ur Specific [place] Urine Protein Urine Glucose (UA) Urine Ketones Ur Blood (Man) Urine Nitrate Urine Bilirubin Urine Urobilinogen Leukocyte Esterase Rfl Urine RBC Urine WBC Ur Squamous Epith Cells Urine Bacteria Urine Casts Ethyl Alcohol Quality VTE Prophylaxis VTE prophylaxis: pharmacologic ordered
[2025-07-05 14:00] VITALS: BP 116/77; PULSE 56; RESP 18; TEMP 36.7; O2SAT 99
[2025-07-05 14:03] VITALS: O2SAT 93
[2025-07-05 20:00] VITALS: BP 131/76; PULSE 73; RESP 18; O2SAT 98
[2025-07-05 20:35] VITALS: BP 131/76; PULSE 73; RESP 18; TEMP 37.1; O2SAT 98
[2025-07-06] MEDS: HYDROmorphone HCL INJ (*CRX) 1 MG/ML SYR 0.5 MG IV PUSH ×6 (03:28→20:20)
[2025-07-06] MEDS: PIPERACILLIN/TAZOBACTAM SOD 3.375 GM in SODIUM CHLORIDE 0.9% IV 50 ML 100 ML IVPB ×4 (03:30→20:19)
[2025-07-06 04:25] VITALS: BP 111/66; PULSE 58; RESP 16; TEMP 36.8; O2SAT 97
[2025-07-06] MEDS: LACTATED RINGERS 1,000 ML 125 ML IV CONT ×2 (05:52→14:37)
[2025-07-06 06:00] LABS: Hematocrit 40.0 % (42.0-52.0); Hemoglobin 13.0 g/dL (14.0-18.0); Immature Granulocyte Percent A 0.4 % (0-0.5); Lymphocytes Absolute Auto 2.05 K/mm3 (0.9-3.2); Mean Corpuscular HGB Conc 32.5 g/dl (32-36); Mean Corpuscular Hemoglobin 31.2 pg (26-34); Mean Corpuscular Volume 95.9 fl (80-100); Nucleated Red Blood Cells Absolute Auto 0.000 K/mm3 (0.0-0.012); Nucleated Red Blood Cells Perc 0.0 % (0.0-0.2); Platelet Count Result 245 k/mm3 (150-375); Red Blood Count 4.17 M/mm3 (4.6-6.20); White Blood Count 8.2 K/mm3 (4.5-10.0)
[2025-07-06 06:18] LABS: Alanine Aminotransferase 18 U/L (6-50); Albumin Level 3.4 g/dL (3.5-5.1); Alkaline Phosphatase 80 U/L (38-126); Amylase 176 U/L (30-110); Anion Gap 8 mmol/L (4-12); Aspartate Amino Transferase 32 U/L (17-59); Bilirubin,Total 0.8 mg/dL (0.2-1.3); Blood Urea Nitrogen 8 mg/dL (9-20); Calcium 8.4 mg/dL (8.4-10.2); Carbon Dioxide 25 mmol/L (22-30); Chloride 98 mmol/L (98-107); Estimated CRCL calculation 121 ml/min; Estimated Glomerular Filt Rate > 60; Glucose 61 mg/dL (65-110); Lipase 1672 U/L (23-300); Magnesium 1.9 mg/dL (1.6-2.3); Potassium 4.2 mmol/L (3.4-5.0); Sodium 131 mmol/L (137-145); Total Protein 6.2 g/dL (6.3-8.2)
--- NOTE | 2025-07-06 07:52 | P.PNIM_ITS ---
Progress Note: A&P Assessment and Plan (1) Pancreatitis: Qualifiers: Acute pancreatitis complication: uninfected necrosis Chronicity: acute Pancreatitis type: alcohol induced Qualified Code(s): K85.21 - Alcohol induced acute pancreatitis with uninfected necrosis Code(s): K85.90 - Acute pancreatitis without necrosis or infection, unspecified Status: Acute (2) Leukocytosis: Code(s): D72.829 - Elevated white blood cell count, unspecified Status: Acute Plan 45-year-old male with past medical history of alcohol use disorder, recent history of pancreatitis, almost a month ago presenting with acute abdominal pain along with nausea vomiting, CT abdomen suggestive of acute pancreatitis with focal tail necrosis. Patient denies drinking alcohol this time. 1. Acute pancreatitis: Unclear if he is drinking although he is denying Alcohol level was unremarkable Continue with IV fluids NPO except sips the meds Pain control Zofran p.r.n. for nausea Triglyceride levels unremarkable Follow-up blood cultures Continue with Zosyn for focal tail necrosis Per GI if blood culture negative then should be ok to discontinue empiric antibiotic use. Leukocytosis has resolved Appreciate GI consult Serial abdominal exam PPI IV b.i.d. Continue with CIWA protocol Continue with Librium p.r.n. Continue with IV folic acid, IV thiamine supplementation clear liquid diet ordered, some increased pain after apple juice this AM, advance as tolerated Am labs 2. Leukocytosis Resolved continue IV zosyn, can discontinue if blood cultures negative f/u blood cultures AM labs 2. DVT prophylaxis: Heparin subQ 3. Code status: Full 4. Disposition: Pending improvement Subjective Date/time seen: 07/06/25 07:52 Interval history: Patient seen lying in bed, in no acute distress. Patient still reports upper abdominal pain, controlled with current pain regimen. Patient had some apple juice this morning and reports it made his pain worsen. Patient to continue on clear liquid diet and advance to full liquid once tolerating. GI following. Lipase level improving. Patient denies nausea or vomiting. Review of Systems Review of Systems: All systems reviewed & are unremarkable except as noted in HPI and below Exam Const: General: comfortable and no acute distress HENMT: Face/Nose/Sinus: Normal nares present Mouth: Yes moist mucous membranes Eyes: Sclera: sclerae normal Neck: Neck: supple Resp: Effort & Inspection: normal respiratory effort Auscultation: clear to auscultation bilaterally Cardio: Rate: regular rate Rhythm: regular rhythm GI: Auscultation: normal bowel sounds Skin: General skin exam: normal color Neuro: Speech: normal speech Extrem: General: normal to inspection Psych: Mental Status: mental status grossly normal Objective Data Vital Signs Vital Signs: Vital Signs - 24 hr 07/05/25 09:10 07/05/25 14:00 07/05/25 14:03 Temperature 98.1 F Pulse Rate 56 L Pulse Rate [Right Radial Palpation] Respiratory Rate 18 Blood Pressure 116/77 Pulse Oximetry 99 93 Oxygen Delivery Room Air Room Air 07/05/25 20:00 07/05/25 20:00 07/05/25 20:35 Temperature 98.7 F Pulse Rate 73 73 Pulse Rate [Right Radial Palpation] 73 Respiratory Rate 18 18 Blood Pressure 131/76 131/76 Pulse Oximetry 98 98 Oxygen Delivery Room Air 07/06/25 04:25 Temperature 98.2 F Pulse Rate 58 L Pulse Rate [Right Radial Palpation] Respiratory Rate 16 Blood Pressure 111/66 Pulse Oximetry 97 Oxygen Delivery Intake/Output Intake/Output: Intake & Output 07/03/25 07/04/25 07/05/25 07/06/25 23:59 23:59 23:59 23:59 Intake Total 3043.8 2200 1050 Balance 3043.8 2200 1050 Meds/Results Medications: Active Medications Generic Name Dose Route Start Last Admin Trade Name Freq PRN Reason Stop Dose Admin Chlordiazepoxide HCl 25 mg 07/05/25 11:13 Chlordiazepoxide (*Crx) 25 Mg Capsule PO Q8H PRN Anxiety Diazepam 5 - 10 mg 07/04/25 14:53 Diazepam Inj (*Crx) 10 Mg/2 Ml Syringe IV PUSH Q5M PRN CIWA > 15 Folic Acid 1 mg 07/05/25 09:00 07/05/25 09:02 Folic Acid 1 Mg/0.2 Ml Inj IV PUSH 1 mg DAILY HUDSON Administration Heparin Sodium (Porcine) 5,000 units 07/04/25 22:00 07/06/25 05:51 Heparin Sodium 5,000 Units/Ml Vial SUB-Q 5,000 units Q8HR HUDSON Administration Hydromorphone HCl 0.5 mg 07/04/25 14:46 07/06/25 05:50 Hydromorphone Hcl Inj (*Crx) 1 Mg/Ml Syr IV PUSH 0.5 mg Q2HR PRN Administration Pain Rated 7-10 Lactated Ringer's 1,000 mls @ 125 mls/hr 07/04/25 11:20 07/06/25 05:52 Lr - Lactated Ringers Iv IV CONT 125 mls/hr .Q8H HUDSON Administration Piperacillin Sod/Tazobactam 50 mls @ 100 mls/hr 07/04/25 15:00 07/06/25 03:30 Sod 3.375 gm/ Sodium Chloride IVPB 100 mls/hr Q6H HUDSON Administration Ondansetron HCl 4 mg 07/04/25 14:46 Ondansetron Inj 4 Mg/2 Ml Vial IV PUSH Q4H PRN Nausea And Vomiting Pantoprazole Sodium 40 mg 07/04/25 21:00 07/05/25 20:49 Pantoprazole Sodium Iv 40 Mg Vial IV PUSH 40 mg Q12HR HUDSON Administration Thiamine HCl 100 mg 07/05/25 09:00 07/05/25 09:02 Thiamine Hcl 200 Mg/2 Ml Vial IV PUSH 100 mg DAILY HUDSON Administration Radiology Results: ITS Impressions Abdomen/Pelvis CT 07/04/25 10:37 IMPRESSION: 1. Acute pancreatitis, with mildly worsened surrounding fluid and inflammation from prior scan. 2. Focal pancreatic tail necrosis. 3. Mild scattered ascites. 4. Otherwise no acute abnormality. Labs Labs: Laboratory Results - last 24 hr 07/05/25 07/06/25 07/06/25 12:07 05:28 06:39 WBC 8.2 RBC 4.17 L Hgb 13.0 L Hct 40.0 L MCV 95.9 MCH 31.2 MCHC 32.5 RDW 12.4 Plt Count 245 MPV 9.3 Immature Gran % (Auto) 0.4 Neut % (Auto) 57.5 Lymph % (Auto) 24.9 [place] % (Auto) 8.9 H Eos % (Auto) 7.8 H Baso % (Auto) 0.5 Lymph # (Auto) 2.05 [place] # (Auto) 0.7 H Eos # (Auto) 0.6 H Baso # (Auto) 0.0 Abs Immat Gran (auto) 0.03 Absolute Neuts (auto) 4.7 Absolute Nucleated RBC 0.000 Nucleated RBC % 0.0 Sodium 131 L Potassium 4.2 Chloride 98 Carbon Dioxide 25 Anion Gap 8 BUN 8 L Creatinine 0.62 L Estim Creat Clear Calc 121 Estimated GFR > 60 Glucose 61 L POC Capillary Glucose 80 55 L* Calcium 8.4 Magnesium 1.9 Total Bilirubin 0.8 AST 32 ALT 18 Alkaline Phosphatase 80 Total Protein 6.2 L Albumin 3.4 L Amylase 176 H Lipase 1672 H 07/06/25 07:01 WBC RBC Hgb Hct MCV MCH MCHC RDW Plt Count MPV Immature Gran % (Auto) Neut % (Auto) Lymph % (Auto) [place] % (Auto) Eos % (Auto) Baso % (Auto) Lymph # (Auto) [place] # (Auto) Eos # (Auto) Baso # (Auto) Abs Immat Gran (auto) Absolute Neuts (auto) Absolute Nucleated RBC Nucleated RBC % Sodium Potassium Chloride Carbon Dioxide Anion Gap BUN Creatinine Estim Creat Clear Calc Estimated GFR Glucose POC Capillary Glucose 70 Calcium Magnesium Total Bilirubin AST ALT Alkaline Phosphatase Total Protein Albumin Amylase Lipase Quality VTE Prophylaxis VTE prophylaxis: pharmacologic ordered
[2025-07-06 08:00] VITALS: BP 111/66; PULSE 73
[2025-07-06] MEDS: THIAMINE HCL 200 MG/2 ML VIAL 100 MG IV PUSH (09:10)
[2025-07-06] MEDS: PANTOPRAZOLE SODIUM IV 40 MG VIAL IV PUSH ×2 (09:10→20:22)
[2025-07-06] MEDS: FOLIC ACID 1 MG/0.2 ML INJ IV PUSH (09:12)
[2025-07-06 12:00] VITALS: BP 125/78; PULSE 73
[2025-07-06 14:00] VITALS: BP 125/78; PULSE 49; RESP 18; TEMP 36.9; O2SAT 97
--- NOTE | 2025-07-06 14:36 | WPDGIPROGNO ---
Progress Note: A&P Assessment and Plan (1) Pancreatitis: Qualifiers: Acute pancreatitis complication: uninfected necrosis Chronicity: acute Pancreatitis type: alcohol induced Qualified Code(s): K85.21 - Alcohol induced acute pancreatitis with uninfected necrosis Code(s): K85.90 - Acute pancreatitis without necrosis or infection, unspecified Status: Acute Assessment and Plan: alcohol related liquid diet only for now because still in pain no need to repeat pancreatic level normal liver enzymes monitor and continue fluids, pain meds prn (2) Nausea and vomiting: Qualifiers: Vomiting type: bilious vomiting Qualified Code(s): R11.14 - Bilious vomiting Code(s): R11.2 - Nausea with vomiting, unspecified Status: Acute (3) Alcohol use: Code(s): F10.90 - Alcohol use, unspecified, uncomplicated Status: Acute (4) Leukocytosis: Code(s): D72.829 - Elevated white blood cell count, unspecified Status: Acute Assessment and Plan: probably reactive from pancreatitis normal now, ok to dc antibiotics (5) Abdominal pain: Code(s): R10.9 - Unspecified abdominal pain Status: Acute Subjective Date/time seen: 07/06/25 14:36 Interval history: liquid diet but still with some pain, on pain meds Review of Systems Review of Systems: All systems reviewed & are unremarkable except as noted in HPI and below Exam Const: General: comfortable and no acute distress HENMT: Face/Nose/Sinus: Normal nares present Eyes: General: appearance normal, both eyes and all related structures Neck: Neck: no JVD Resp: Auscultation: clear to auscultation bilaterally Cardio: Rate: regular rate Rhythm: regular rhythm GI: Inspection: non-distended GI Palp: Yes Soft to palpation, Yes Tenderness to palpation present (GI) (mild ttp in epigastric, no rebound) and No Guarding due to palpation present (GI) Skin: General skin exam: normal color Neuro: Speech: normal speech Extrem: General: normal to inspection Psych: Mental Status: mental status grossly normal Objective Data Vital Signs Vital Signs: Vital Signs - 24 hr 07/05/25 20:00 07/05/25 20:00 07/05/25 20:35 Temperature 98.7 F Pulse Rate 73 73 Pulse Rate [Right Radial Palpation] 73 Respiratory Rate 18 18 Blood Pressure 131/76 131/76 Pulse Oximetry 98 98 Oxygen Delivery Room Air 07/06/25 04:25 07/06/25 08:00 07/06/25 08:00 Temperature 98.2 F Pulse Rate 58 L Pulse Rate [Right Radial Palpation] 73 Respiratory Rate 16 Blood Pressure 111/66 111/66 Pulse Oximetry 97 Oxygen Delivery Room Air Intake/Output Intake/Output: Intake & Output 07/03/25 07/04/25 07/05/25 07/06/25 23:59 23:59 23:59 23:59 Intake Total 3043.8 2200 1580 Balance 3043.8 2200 1580 Meds/Results Medications: Active Medications Generic Name Dose Route Start Last Admin Trade Name Freq PRN Reason Stop Dose Admin Chlordiazepoxide HCl 25 mg 07/05/25 11:13 Chlordiazepoxide (*Crx) 25 Mg Capsule PO Q8H PRN Anxiety Diazepam 5 - 10 mg 07/04/25 14:53 Diazepam Inj (*Crx) 10 Mg/2 Ml Syringe IV PUSH Q5M PRN CIWA > 15 Folic Acid 1 mg 07/05/25 09:00 07/06/25 09:12 Folic Acid 1 Mg/0.2 Ml Inj IV PUSH 1 mg DAILY HUDSON Administration Heparin Sodium (Porcine) 5,000 units 07/04/25 22:00 07/06/25 13:10 Heparin Sodium 5,000 Units/Ml Vial SUB-Q 5,000 units Q8HR HUDSON Administration Hydromorphone HCl 0.5 mg 07/04/25 14:46 07/06/25 13:08 Hydromorphone Hcl Inj (*Crx) 1 Mg/Ml Syr IV PUSH 0.5 mg Q2HR PRN Administration Pain Rated 7-10 Lactated Ringer's 1,000 mls @ 125 mls/hr 07/04/25 11:20 07/06/25 09:15 Lr - Lactated Ringers Iv IV CONT Not Given .Q8H HUDSON Piperacillin Sod/Tazobactam 50 mls @ 100 mls/hr 07/04/25 15:00 07/06/25 09:10 Sod 3.375 gm/ Sodium Chloride IVPB 100 mls/hr Q6H HUDSON Administration Ondansetron HCl 4 mg 07/04/25 14:46 Ondansetron Inj 4 Mg/2 Ml Vial IV PUSH Q4H PRN Nausea And Vomiting Pantoprazole Sodium 40 mg 07/04/25 21:00 07/06/25 09:10 Pantoprazole Sodium Iv 40 Mg Vial IV PUSH 40 mg Q12HR HUDSON Administration Thiamine HCl 100 mg 07/05/25 09:00 07/06/25 09:10 Thiamine Hcl 200 Mg/2 Ml Vial IV PUSH 100 mg DAILY HUDSON Administration Radiology Results: ITS Impressions Abdomen/Pelvis CT 07/04/25 10:37 IMPRESSION: 1. Acute pancreatitis, with mildly worsened surrounding fluid and inflammation from prior scan. 2. Focal pancreatic tail necrosis. 3. Mild scattered ascites. 4. Otherwise no acute abnormality. Labs Labs: Laboratory Results - last 24 hr 07/06/25 07/06/25 07/06/25 05:28 06:39 07:01 WBC 8.2 RBC 4.17 L Hgb 13.0 L Hct 40.0 L MCV 95.9 MCH 31.2 MCHC 32.5 RDW 12.4 Plt Count 245 MPV 9.3 Immature Gran % (Auto) 0.4 Neut % (Auto) 57.5 Lymph % (Auto) 24.9 [place] % (Auto) 8.9 H Eos % (Auto) 7.8 H Baso % (Auto) 0.5 Lymph # (Auto) 2.05 [place] # (Auto) 0.7 H Eos # (Auto) 0.6 H Baso # (Auto) 0.0 Abs Immat Gran (auto) 0.03 Absolute Neuts (auto) 4.7 Absolute Nucleated RBC 0.000 Nucleated RBC % 0.0 Sodium 131 L Potassium 4.2 Chloride 98 Carbon Dioxide 25 Anion Gap 8 BUN 8 L Creatinine 0.62 L Estim Creat Clear Calc 121 Estimated GFR > 60 Glucose 61 L POC Capillary Glucose 55 L* 70 Calcium 8.4 Magnesium 1.9 Total Bilirubin 0.8 AST 32 ALT 18 Alkaline Phosphatase 80 Total Protein 6.2 L Albumin 3.4 L Amylase 176 H Lipase 1672 H 07/06/25 12:12 WBC RBC Hgb Hct MCV MCH MCHC RDW Plt Count MPV Immature Gran % (Auto) Neut % (Auto) Lymph % (Auto) [place] % (Auto) Eos % (Auto) Baso % (Auto) Lymph # (Auto) [place] # (Auto) Eos # (Auto) Baso # (Auto) Abs Immat Gran (auto) Absolute Neuts (auto) Absolute Nucleated RBC Nucleated RBC % Sodium Potassium Chloride Carbon Dioxide Anion Gap BUN Creatinine Estim Creat Clear Calc Estimated GFR Glucose POC Capillary Glucose 179 H Calcium Magnesium Total Bilirubin AST ALT Alkaline Phosphatase Total Protein Albumin Amylase Lipase
[2025-07-06 16:00] VITALS: BP 125/78; PULSE 73
[2025-07-06 22:52] VITALS: BP 120/88; PULSE 54; RESP 20; TEMP 36.7; O2SAT 98
[2025-07-07] MEDS: LACTATED RINGERS 1,000 ML 125 ML IV CONT ×4 (00:37→21:48)
[2025-07-07] MEDS: HYDROmorphone HCL INJ (*CRX) 1 MG/ML SYR 0.5 MG IV PUSH ×3 (00:37→09:22)
[2025-07-07] MEDS: PIPERACILLIN/TAZOBACTAM SOD 3.375 GM in SODIUM CHLORIDE 0.9% IV 50 ML 100 ML IVPB (03:28)
[2025-07-07 05:56] LABS: Hematocrit 40.2 % (42.0-52.0); Hemoglobin 13.2 g/dL (14.0-18.0); Immature Granulocyte Percent A 0.1 % (0-0.5); Lymphocytes Absolute Auto 2.31 K/mm3 (0.9-3.2); Mean Corpuscular HGB Conc 32.8 g/dl (32-36); Mean Corpuscular Hemoglobin 31.1 pg (26-34); Mean Corpuscular Volume 94.6 fl (80-100); Nucleated Red Blood Cells Absolute Auto 0.000 K/mm3 (0.0-0.012); Nucleated Red Blood Cells Perc 0.0 % (0.0-0.2); Platelet Count Result 275 k/mm3 (150-375); Red Blood Count 4.25 M/mm3 (4.6-6.20); White Blood Count 7.0 K/mm3 (4.5-10.0)
[2025-07-07 06:00] VITALS: BP 116/75; PULSE 98; RESP 20; TEMP 36.7; O2SAT 98
[2025-07-07 06:18] LABS: Alanine Aminotransferase 15 U/L (6-50); Albumin Level 3.3 g/dL (3.5-5.1); Alkaline Phosphatase 82 U/L (38-126); Anion Gap 4 mmol/L (4-12); Aspartate Amino Transferase 29 U/L (17-59); Bilirubin,Total 0.6 mg/dL (0.2-1.3); Blood Urea Nitrogen 4 mg/dL (9-20); Calcium 8.3 mg/dL (8.4-10.2); Carbon Dioxide 31 mmol/L (22-30); Chloride 99 mmol/L (98-107); Estimated CRCL calculation 116 ml/min; Estimated Glomerular Filt Rate > 60; Glucose 104 mg/dL (65-110); Magnesium 1.9 mg/dL (1.6-2.3); Potassium 3.8 mmol/L (3.4-5.0); Sodium 134 mmol/L (137-145); Total Protein 6.2 g/dL (6.3-8.2)
--- NOTE | 2025-07-07 07:58 | P.PNIM_ITS ---
Progress Note: A&P Assessment and Plan (1) Pancreatitis: Qualifiers: Acute pancreatitis complication: uninfected necrosis Chronicity: acute Pancreatitis type: alcohol induced Qualified Code(s): K85.21 - Alcohol induced acute pancreatitis with uninfected necrosis Code(s): K85.90 - Acute pancreatitis without necrosis or infection, unspecified Status: Acute (2) Leukocytosis: Code(s): D72.829 - Elevated white blood cell count, unspecified Status: Acute Plan 45-year-old male with past medical history of alcohol use disorder, recent history of pancreatitis, almost a month ago presenting with acute abdominal pain along with nausea vomiting, CT abdomen suggestive of acute pancreatitis with focal tail necrosis. Patient denies drinking alcohol this time. 1. Acute pancreatitis: Unclear if he is drinking although he is denying Alcohol level was unremarkable Continue with IV fluids Pain control Zofran p.r.n. for nausea Triglyceride levels unremarkable Follow-up blood cultures Was on Zosyn for focal tail necrosis, ruled out, OK to stop per GI Leukocytosis has resolved Appreciate GI consult Serial abdominal exam PPI IV b.i.d. Continue with CIWA protocol Continue with Librium p.r.n. Continue with IV folic acid, IV thiamine supplementation patient tolerating clear liquid diet with some RUQ and epigastric pain reported advance diet per GI recommendations add PO [place] for pain control Am labs 2. Leukocytosis Resolved s/p IV Zosyn f/u blood cultures AM labs 2. DVT prophylaxis: Heparin subQ 3. Code status: Full 4. Disposition: Pending improvement Subjective Date/time seen: 07/07/25 07:58 Interval history: Patient seen for a follow up visit. Patient seen lying in his bed, in no acute distress. Patient tolerated clear liquid diet the AM for breakfast. Patient reports RUQ and epigastric pain still. Pain is controlled with IV pain medications. Start PO [place]. GI following. Adavance diet per GI recommendations. IV antibiotics stopped. Continue IV fluids. Review of Systems Review of Systems: All systems reviewed & are unremarkable except as noted in HPI and below Exam Const: General: comfortable and no acute distress HENMT: Face/Nose/Sinus: Normal nares present Mouth: Yes moist mucous membranes Eyes: Sclera: sclerae normal Neck: Neck: supple Resp: Effort & Inspection: normal respiratory effort Auscultation: clear to auscultation bilaterally Cardio: Rate: regular rate Rhythm: regular rhythm GI: Auscultation: normal bowel sounds Skin: General skin exam: normal color Neuro: Speech: normal speech Extrem: General: normal to inspection Psych: Mental Status: mental status grossly normal Objective Data Vital Signs Vital Signs: Vital Signs - 24 hr 07/06/25 08:00 07/06/25 08:00 07/06/25 12:00 Temperature Pulse Rate Pulse Rate [Right Radial Palpation] 73 73 Respiratory Rate Blood Pressure 111/66 125/78 Pulse Oximetry Oxygen Delivery Room Air 07/06/25 14:00 07/06/25 16:00 07/06/25 20:00 Temperature 98.4 F Pulse Rate 49 L Pulse Rate [Right Radial Palpation] 73 Respiratory Rate 18 Blood Pressure 125/78 125/78 Pulse Oximetry 97 Oxygen Delivery Room Air 07/06/25 22:52 07/07/25 06:00 Temperature 98.1 F 98.1 F Pulse Rate 54 L 98 Pulse Rate [Right Radial Palpation] Respiratory Rate 20 20 Blood Pressure 120/88 116/75 Pulse Oximetry 98 98 Oxygen Delivery Intake/Output Intake/Output: Intake & Output 07/04/25 07/05/25 07/06/25 07/07/25 23:59 23:59 23:59 23:59 Intake Total 3043.8 2200 3530 1550 Balance 3043.8 2200 3530 1550 Meds/Results Medications: Active Medications Generic Name Dose Route Start Last Admin Trade Name Freq PRN Reason Stop Dose Admin Chlordiazepoxide HCl 25 mg 07/05/25 11:13 Chlordiazepoxide (*Crx) 25 Mg Capsule PO Q8H PRN Anxiety Diazepam 5 - 10 mg 07/04/25 14:53 Diazepam Inj (*Crx) 10 Mg/2 Ml Syringe IV PUSH Q5M PRN CIWA > 15 Folic Acid 1 mg 07/05/25 09:00 07/06/25 09:12 Folic Acid 1 Mg/0.2 Ml Inj IV PUSH 1 mg DAILY HUDSON Administration Heparin Sodium (Porcine) 5,000 units 07/04/25 22:00 07/07/25 06:47 Heparin Sodium 5,000 Units/Ml Vial SUB-Q 5,000 units Q8HR HU[facility]ON Administration Hydromorphone HCl 0.5 mg 07/04/25 14:46 07/07/25 06:48 Hydromorphone Hcl Inj (*Crx) 1 Mg/Ml Syr IV PUSH 0.5 mg Q2HR PRN Administration Pain Rated 7-10 Lactated Ringer's 1,000 mls @ 125 mls/hr 07/04/25 11:20 07/07/25 00:37 Lr - Lactated Ringers Iv IV CONT 125 mls/hr .Q8H HU[facility]ON Administration Ondansetron HCl 4 mg 07/04/25 14:46 Ondansetron Inj 4 Mg/2 Ml Vial IV PUSH Q4H PRN Nausea And Vomiting Pantoprazole Sodium 40 mg 07/04/25 21:00 07/06/25 20:22 Pantoprazole Sodium Iv 40 Mg Vial IV PUSH 40 mg Q12HR HUDSON Administration Thiamine HCl 100 mg 07/05/25 09:00 07/06/25 09:10 Thiamine Hcl 200 Mg/2 Ml Vial IV PUSH 100 mg DAILY HUDSON Administration Radiology Results: ITS Impressions Abdomen/Pelvis CT 07/04/25 10:37 IMPRESSION: 1. Acute pancreatitis, with mildly worsened surrounding fluid and inflammation from prior scan. 2. Focal pancreatic tail necrosis. 3. Mild scattered ascites. 4. Otherwise no acute abnormality. Labs Labs: Laboratory Results - last 24 hr 07/06/25 07/07/25 12:12 05:21 WBC 7.0 RBC 4.25 L Hgb 13.2 L Hct 40.2 L MCV 94.6 MCH 31.1 MCHC 32.8 RDW 12.4 Plt Count 275 MPV 9.3 Immature Gran % (Auto) 0.1 Neut % (Auto) 44.3 L Lymph % (Auto) 33.1 [place] % (Auto) 12.1 H Eos % (Auto) 9.8 H Baso % (Auto) 0.6 Lymph # (Auto) 2.31 [place] # (Auto) 0.8 H Eos # (Auto) 0.7 H Baso # (Auto) 0.0 Abs Immat Gran (auto) 0.01 Absolute Neuts (auto) 3.1 Absolute Nucleated RBC 0.000 Nucleated RBC % 0.0 Sodium 134 L Potassium 3.8 Chloride 99 Carbon Dioxide 31 H Anion Gap 4 BUN 4 L Creatinine 0.65 L Estim Creat Clear Calc 116 Estimated GFR > 60 Glucose 104 POC Capillary Glucose 179 H Calcium 8.3 L Magnesium 1.9 Total Bilirubin 0.6 AST 29 ALT 15 Alkaline Phosphatase 82 Total Protein 6.2 L Albumin 3.3 L Quality VTE Prophylaxis VTE prophylaxis: pharmacologic ordered
[2025-07-07] MEDS: THIAMINE HCL 200 MG/2 ML VIAL 100 MG IV PUSH (09:19)
[2025-07-07] MEDS: PANTOPRAZOLE SODIUM IV 40 MG VIAL IV PUSH ×2 (09:19→21:48)
[2025-07-07] MEDS: FOLIC ACID 1 MG/0.2 ML INJ IV PUSH (09:19)
[2025-07-07] MEDS: HYDROcodone/acetaminophen (*CRX) 5-325 MG TABLET 1 TAB PO ×2 (12:57→21:46)
[2025-07-07 14:00] VITALS: BP 118/68; PULSE 56; RESP 16; TEMP 36.8; O2SAT 100
--- NOTE | 2025-07-07 14:57 | PC.NURSE ---
Per pharmacy, okay to waste two vials of Dilaudid found locked in drawer from overnight with 2nd RN witness.
--- NOTE | 2025-07-07 15:00 | P.PNGI_ITS ---
Progress Note: A&P Assessment and Plan (1) Pancreatitis: Qualifiers: Acute pancreatitis complication: uninfected necrosis Chronicity: acute Pancreatitis type: alcohol induced Qualified Code(s): K85.21 - Alcohol induced acute pancreatitis with uninfected necrosis Code(s): K85.90 - Acute pancreatitis without necrosis or infection, unspecified Status: Acute Assessment and Plan: alcohol related will advance diet- instructed to eat only small size meals as tolerated he is now on oral pain meds prn hopefully go home tomorrow (2) Nausea and vomiting: Qualifiers: Vomiting type: bilious vomiting Qualified Code(s): R11.14 - Bilious vomiting Code(s): R11.2 - Nausea with vomiting, unspecified Status: Acute Assessment and Plan: much better (3) Alcohol use: Code(s): F10.90 - Alcohol use, unspecified, uncomplicated Status: Acute (4) Leukocytosis: Code(s): D72.829 - Elevated white blood cell count, unspecified Status: Acute Assessment and Plan: probably reactive from pancreatitis resolved abx discontinued (5) Abdominal pain: Code(s): R10.9 - Unspecified abdominal pain Status: Acute Subjective Date/time seen: 07/07/25 15:00 Interval history: overall much better, pain down to 4/10, no more nausea transitioned to oral pain meds had BM after 4 days Review of Systems Review of Systems: All systems reviewed & are unremarkable except as noted in HPI and below Exam Const: General: comfortable and no acute distress HENMT: Face/Nose/Sinus: Normal nares present Eyes: General: appearance normal, both eyes and all related structures Neck: Neck: no JVD Resp: Auscultation: clear to auscultation bilaterally Cardio: Rate: regular rate Rhythm: regular rhythm GI: Inspection: non-distended GI Palp: Yes Soft to palpation, Yes Tenderness to palpation present (GI) (mild ttp in epigastric, no rebound- this is better) and No Guarding due to palpation present (GI) Skin: General skin exam: normal color Neuro: Speech: normal speech Extrem: General: normal to inspection Psych: Mental Status: mental status grossly normal Objective Data Vital Signs Vital Signs: Vital Signs - 24 hr 07/06/25 16:00 07/06/25 20:00 07/06/25 22:52 Temperature 98.1 F Pulse Rate 54 L Pulse Rate [Right Radial Palpation] 73 Respiratory Rate 20 Blood Pressure 125/78 120/88 Pulse Oximetry 98 Oxygen Delivery Room Air 07/07/25 06:00 07/07/25 08:00 Temperature 98.1 F Pulse Rate 98 Pulse Rate [Right Radial Palpation] Respiratory Rate 20 Blood Pressure 116/75 Pulse Oximetry 98 Oxygen Delivery Room Air Intake/Output Intake/Output: Intake & Output 07/04/25 07/05/25 07/06/25 07/07/25 23:59 23:59 23:59 23:59 Intake Total 3043.8 2200 3530 4150 Balance 3043.8 2200 3530 4150 Meds/Results Medications: Active Medications Generic Name Dose Route Start Last Admin Trade Name Freq PRN Reason Stop Dose Admin Hydrocodone Bitart/Acetaminophen 1 tab 07/07/25 11:06 07/07/25 12:57 Hydrocodone/Acetaminophen (*Crx) 5-325 Mg Tablet PO 1 tab Q6H PRN Administration Pain Rated 4-6 Chlordiazepoxide HCl 25 mg 07/05/25 11:13 Chlordiazepoxide (*Crx) 25 Mg Capsule PO Q8H PRN Anxiety Diazepam 5 - 10 mg 07/04/25 14:53 Diazepam Inj (*Crx) 10 Mg/2 Ml Syringe IV PUSH Q5M PRN CIWA > 15 Folic Acid 1 mg 07/05/25 09:00 07/07/25 09:19 Folic Acid 1 Mg/0.2 Ml Inj IV PUSH 1 mg DAILY HUDSON Administration Heparin Sodium (Porcine) 5,000 units 07/04/25 22:00 07/07/25 12:57 Heparin Sodium 5,000 Units/Ml Vial SUB-Q 5,000 units Q8HR HU[facility]ON Administration Hydromorphone HCl 0.5 mg 07/04/25 14:46 07/07/25 09:22 Hydromorphone Hcl Inj (*Crx) 1 Mg/Ml Syr IV PUSH 0.5 mg Q2HR PRN Administration Pain Rated 7-10 Lactated Ringer's 1,000 mls @ 125 mls/hr 07/04/25 11:20 07/07/25 09:19 Lr - Lactated Ringers Iv IV CONT 125 mls/hr .Q8H HUDSON Administration Ondansetron HCl 4 mg 07/04/25 14:46 Ondansetron Inj 4 Mg/2 Ml Vial IV PUSH Q4H PRN Nausea And Vomiting Pantoprazole Sodium 40 mg 07/04/25 21:00 07/07/25 09:19 Pantoprazole Sodium Iv 40 Mg Vial IV PUSH 40 mg Q12HR HUDSON Administration Polyethylene Glycol 17 gm 07/07/25 11:10 07/07/25 12:57 Polyethylene Glycol 3350 17 Gm Powd.Pack PO 17 gm QAM HUDSON Administration Thiamine HCl 100 mg 07/05/25 09:00 07/07/25 09:19 Thiamine Hcl 200 Mg/2 Ml Vial IV PUSH 100 mg DAILY HUDSON Administration Radiology Results: ITS Impressions Abdomen/Pelvis CT 07/04/25 10:37 IMPRESSION: 1. Acute pancreatitis, with mildly worsened surrounding fluid and inflammation from prior scan. 2. Focal pancreatic tail necrosis. 3. Mild scattered ascites. 4. Otherwise no acute abnormality. Labs Labs: Laboratory Results - last 24 hr 07/07/25 07/07/25 05:21 12:40 WBC 7.0 RBC 4.25 L Hgb 13.2 L Hct 40.2 L MCV 94.6 MCH 31.1 MCHC 32.8 RDW 12.4 Plt Count 275 MPV 9.3 Immature Gran % (Auto) 0.1 Neut % (Auto) 44.3 L Lymph % (Auto) 33.1 [place] % (Auto) 12.1 H Eos % (Auto) 9.8 H Baso % (Auto) 0.6 Lymph # (Auto) 2.31 [place] # (Auto) 0.8 H Eos # (Auto) 0.7 H Baso # (Auto) 0.0 Abs Immat Gran (auto) 0.01 Absolute Neuts (auto) 3.1 Absolute Nucleated RBC 0.000 Nucleated RBC % 0.0 Sodium 134 L Potassium 3.8 Chloride 99 Carbon Dioxide 31 H Anion Gap 4 BUN 4 L Creatinine 0.65 L Estim Creat Clear Calc 116 Estimated GFR > 60 Glucose 104 POC Capillary Glucose 124 H Calcium 8.3 L Magnesium 1.9 Total Bilirubin 0.6 AST 29 ALT 15 Alkaline Phosphatase 82 Total Protein 6.2 L Albumin 3.3 L
[2025-07-07 22:00] VITALS: BP 128/86; PULSE 59; RESP 18; TEMP 36.7; O2SAT 99
[2025-07-08] MEDS: HYDROmorphone HCL INJ (*CRX) 1 MG/ML SYR 0.5 MG IV PUSH (02:36)
[2025-07-08] MEDS: HYDROcodone/acetaminophen (*CRX) 5-325 MG TABLET 1 TAB PO ×4 (04:47→20:57)
[2025-07-08 05:50] LABS: Hematocrit 40.3 % (42.0-52.0); Hemoglobin 13.3 g/dL (14.0-18.0); Immature Granulocyte Percent A 0.2 % (0-0.5); Lymphocytes Absolute Auto 2.78 K/mm3 (0.9-3.2); Mean Corpuscular HGB Conc 33.0 g/dl (32-36); Mean Corpuscular Hemoglobin 31.3 pg (26-34); Mean Corpuscular Volume 94.8 fl (80-100); Nucleated Red Blood Cells Absolute Auto 0.000 K/mm3 (0.0-0.012); Nucleated Red Blood Cells Perc 0.0 % (0.0-0.2); Platelet Count Result 289 k/mm3 (150-375); Red Blood Count 4.25 M/mm3 (4.6-6.20); White Blood Count 8.0 K/mm3 (4.5-10.0)
[2025-07-08 06:00] VITALS: BP 140/96; PULSE 50; RESP 18; TEMP 36.9; O2SAT 97
[2025-07-08 07:03] LABS: Alanine Aminotransferase 20 U/L (6-50); Albumin Level 3.4 g/dL (3.5-5.1); Alkaline Phosphatase 86 U/L (38-126); Anion Gap 5 mmol/L (4-12); Aspartate Amino Transferase 41 U/L (17-59); Bilirubin,Total 0.3 mg/dL (0.2-1.3); Blood Urea Nitrogen 3 mg/dL (9-20); Calcium 8.4 mg/dL (8.4-10.2); Carbon Dioxide 30 mmol/L (22-30); Chloride 100 mmol/L (98-107); Estimated CRCL calculation 129 ml/min; Estimated Glomerular Filt Rate > 60; Glucose 105 mg/dL (65-110); Potassium 3.8 mmol/L (3.4-5.0); Sodium 135 mmol/L (137-145); Total Protein 6.3 g/dL (6.3-8.2)
[2025-07-08] MEDS: THIAMINE HCL 200 MG/2 ML VIAL 100 MG IV PUSH (09:55)
[2025-07-08] MEDS: PANTOPRAZOLE SODIUM IV 40 MG VIAL IV PUSH (09:56)
[2025-07-08] MEDS: FOLIC ACID 1 MG/0.2 ML INJ IV PUSH (09:56)
[2025-07-08] MEDS: LACTATED RINGERS 1,000 ML 125 ML IV CONT ×2 (11:35→15:19)
--- NOTE | 2025-07-08 15:05 | PM.IMPN ---
Progress Note: A&P Assessment and Plan (1) Pancreatitis: Qualifiers: Acute pancreatitis complication: uninfected necrosis Chronicity: acute Pancreatitis type: alcohol induced Qualified Code(s): K85.21 - Alcohol induced acute pancreatitis with uninfected necrosis Code(s): K85.90 - Acute pancreatitis without necrosis or infection, unspecified Status: Acute (2) Leukocytosis: Code(s): D72.829 - Elevated white blood cell count, unspecified Status: Acute Plan 45-year-old male with past medical history of alcohol use disorder, recent history of pancreatitis, almost a month ago presenting with acute abdominal pain along with nausea vomiting, CT abdomen suggestive of acute pancreatitis with focal tail necrosis. Patient denies drinking alcohol this time. 1. Acute pancreatitis: Unclear if he is drinking although he is denying Alcohol level was unremarkable Continue with IV fluids Pain control Zofran p.r.n. for nausea Triglyceride levels unremarkable Follow-up blood cultures Was on Zosyn for focal tail necrosis, ruled out, OK to stop per GI Leukocytosis has resolved Appreciate GI consult Serial abdominal exam PPI IV b.i.d. Continue with CIWA protocol Continue with Librium p.r.n. Continue with IV folic acid, IV thiamine supplementation Continue PO [place] for pain control, wean off IV narcotics in preparation for discharge Low fiber diet, patient reports having a lot of pain after dinner, will attempt breakfast this morning AM labs 2. Leukocytosis Resolved s/p IV Zosyn f/u blood cultures AM labs 2. DVT prophylaxis: Heparin subQ 3. Code status: Full 4. Disposition: Pending improvement Subjective Date/time seen: 07/08/25 15:05 Interval history: Patient seen sitting up on side of bed, in no acute distress. Patient reports having a lot of pain after eating dinner the evening before. Patient reports he did have a bowel movement yesterday evening. Patient is getting ready to eat breakfast at the time of the visit. Patient is tolerating fluids without difficulty. Continue to try to advance diet. Attempt to switch to PO pain medication in preparation for discharge. Plan discussed wtih patient. GI following patient. Review of Systems Review of Systems: All systems reviewed & are unremarkable except as noted in HPI and below Exam Const: General: comfortable and no acute distress HENMT: Face/Nose/Sinus: Normal nares present Mouth: Yes moist mucous membranes Eyes: Sclera: sclerae normal Neck: Neck: supple Resp: Effort & Inspection: normal respiratory effort Auscultation: clear to auscultation bilaterally Cardio: Rate: regular rate Rhythm: regular rhythm GI: Auscultation: normal bowel sounds Skin: General skin exam: normal color Neuro: Speech: normal speech Extrem: General: normal to inspection Psych: Mental Status: mental status grossly normal Objective Data Vital Signs Vital Signs: Vital Signs - 24 hr 07/07/25 20:00 07/07/25 22:00 07/08/25 06:00 Temperature 98.1 F 98.4 F Pulse Rate 59 L 50 L Respiratory Rate 18 18 Blood Pressure 128/86 140/96 H Pulse Oximetry 99 97 Oxygen Delivery Room Air 07/08/25 08:00 Temperature Pulse Rate Respiratory Rate Blood Pressure Pulse Oximetry Oxygen Delivery Room Air Intake/Output Intake/Output: Intake & Output 07/05/25 07/06/25 07/07/25 07/08/25 23:59 23:59 23:59 23:59 Intake Total 2200 3530 7506.3 2280 Balance 2200 3530 7506.3 2280 Meds/Results Medications: Active Medications Generic Name Dose Route Start Last Admin Trade Name Freq PRN Reason Stop Dose Admin Hydrocodone Bitart/Acetaminophen 1 tab 07/08/25 14:59 Hydrocodone/Acetaminophen (*Crx) 5-325 Mg Tablet PO Q4H PRN Pain Rated 4-6 Chlordiazepoxide HCl 25 mg 07/05/25 11:13 Chlordiazepoxide (*Crx) 25 Mg Capsule PO Q8H PRN Anxiety Diazepam 5 - 10 mg 07/04/25 14:53 Diazepam Inj (*Crx) 10 Mg/2 Ml Syringe IV PUSH Q5M PRN CIWA > 15 Folic Acid 1 mg 07/05/25 09:00 07/08/25 09:56 Folic Acid 1 Mg/0.2 Ml Inj IV PUSH 1 mg DAILY HUDSON Administration Heparin Sodium (Porcine) 5,000 units 07/04/25 22:00 07/08/25 07:49 Heparin Sodium 5,000 Units/Ml Vial SUB-Q Not Given Q8HR HUDSON Lactated Ringer's 1,000 mls @ 125 mls/hr 07/04/25 11:20 07/08/25 11:35 Lr - Lactated Ringers Iv IV CONT 125 mls/hr .Q8H HUDSON Administration Ondansetron HCl 4 mg 07/04/25 14:46 Ondansetron Inj 4 Mg/2 Ml Vial IV PUSH Q4H PRN Nausea And Vomiting Pantoprazole Sodium 40 mg 07/04/25 21:00 07/08/25 09:56 Pantoprazole Sodium Iv 40 Mg Vial IV PUSH 40 mg Q12HR HUDSON Administration Polyethylene Glycol 17 gm 07/07/25 11:10 07/08/25 09:55 Polyethylene Glycol 3350 17 Gm Powd.Pack PO 17 gm QAM HUDSON Administration Thiamine HCl 100 mg 07/05/25 09:00 07/08/25 09:55 Thiamine Hcl 200 Mg/2 Ml Vial IV PUSH 100 mg DAILY HUDSON Administration Radiology Results: ITS Impressions Abdomen/Pelvis CT 07/04/25 10:37 IMPRESSION: 1. Acute pancreatitis, with mildly worsened surrounding fluid and inflammation from prior scan. 2. Focal pancreatic tail necrosis. 3. Mild scattered ascites. 4. Otherwise no acute abnormality. Labs Labs: Laboratory Results - last 24 hr 07/08/25 07/08/25 05:19 12:13 WBC 8.0 RBC 4.25 L Hgb 13.3 L Hct 40.3 L MCV 94.8 MCH 31.3 MCHC 33.0 RDW 12.6 Plt Count 289 MPV 9.3 Immature Gran % (Auto) 0.2 Neut % (Auto) 48.6 Lymph % (Auto) 34.7 [place] % (Auto) 10.6 H Eos % (Auto) 5.4 H Baso % (Auto) 0.5 Lymph # (Auto) 2.78 [place] # (Auto) 0.9 H Eos # (Auto) 0.4 H Baso # (Auto) 0.0 Abs Immat Gran (auto) 0.02 Absolute Neuts (auto) 3.9 Absolute Nucleated RBC 0.000 Nucleated RBC % 0.0 Sodium 135 L Potassium 3.8 Chloride 100 Carbon Dioxide 30 Anion Gap 5 BUN 3 L Creatinine 0.58 L Estim Creat Clear Calc 129 Estimated GFR > 60 Glucose 105 POC Capillary Glucose 109 H Calcium 8.4 Total Bilirubin 0.3 AST 41 ALT 20 Alkaline Phosphatase 86 Total Protein 6.3 Albumin 3.4 L Quality VTE Prophylaxis VTE prophylaxis: pharmacologic ordered
[2025-07-08] MEDS: MAGNESIUM HYDROXIDE SUSP 30 ML UDC PO (15:16)
[2025-07-08 15:55] VITALS: BP 129/91; PULSE 60; RESP 16; TEMP 35.9; O2SAT 100
--- NOTE | 2025-07-08 16:22 | WPDGIPROGNO ---
Progress Note: A&P Assessment and Plan (1) Pancreatitis: Qualifiers: Acute pancreatitis complication: uninfected necrosis Chronicity: acute Pancreatitis type: alcohol induced Qualified Code(s): K85.21 - Alcohol induced acute pancreatitis with uninfected necrosis Code(s): K85.90 - Acute pancreatitis without necrosis or infection, unspecified Status: Acute Assessment and Plan: alcohol related tolerating more diet he is now on oral pain meds prn hopefully go home tomorrow (2) Nausea and vomiting: Qualifiers: Vomiting type: bilious vomiting Qualified Code(s): R11.14 - Bilious vomiting Code(s): R11.2 - Nausea with vomiting, unspecified Status: Acute Assessment and Plan: much better (3) Alcohol use: Code(s): F10.90 - Alcohol use, unspecified, uncomplicated Status: Acute (4) Leukocytosis: Code(s): D72.829 - Elevated white blood cell count, unspecified Status: Acute Assessment and Plan: probably reactive from pancreatitis resolved abx was discontinued (5) Abdominal pain: Code(s): R10.9 - Unspecified abdominal pain Status: Acute Subjective Date/time seen: 07/08/25 16:22 Interval history: eating more, no nausea, still some pain about 4/10 Review of Systems Review of Systems: All systems reviewed & are unremarkable except as noted in HPI and below Exam Const: General: comfortable and no acute distress HENMT: Face/Nose/Sinus: Normal nares present Eyes: General: appearance normal, both eyes and all related structures Neck: Neck: no JVD Resp: Auscultation: clear to auscultation bilaterally Cardio: Rate: regular rate Rhythm: regular rhythm GI: Inspection: non-distended GI Palp: Yes Soft to palpation, Yes Tenderness to palpation present (GI) (mild ttp in epigastric, no rebound- this is better) and No Guarding due to palpation present (GI) Skin: General skin exam: normal color Neuro: Speech: normal speech Extrem: General: normal to inspection Psych: Mental Status: mental status grossly normal Objective Data Vital Signs Vital Signs: Vital Signs - 24 hr 07/07/25 20:00 07/07/25 22:00 07/08/25 06:00 Temperature 98.1 F 98.4 F Pulse Rate 59 L 50 L Respiratory Rate 18 18 Blood Pressure 128/86 140/96 H Pulse Oximetry 99 97 Oxygen Delivery Room Air 07/08/25 08:00 07/08/25 15:55 Temperature 96.6 F L Pulse Rate 60 Respiratory Rate 16 Blood Pressure 129/91 H Pulse Oximetry 100 Oxygen Delivery Room Air Intake/Output Intake/Output: Intake & Output 07/05/25 07/06/25 07/07/25 07/08/25 23:59 23:59 23:59 23:59 Intake Total 2200 3530 7506.3 2748.8 Balance 2200 3530 7506.3 2748.8 Meds/Results Medications: Active Medications Generic Name Dose Route Start Last Admin Trade Name Freq PRN Reason Stop Dose Admin Hydrocodone Bitart/Acetaminophen 1 tab 07/08/25 14:59 07/08/25 15:18 Hydrocodone/Acetaminophen (*Crx) 5-325 Mg Tablet PO 1 tab Q4H PRN Administration Pain Rated 4-6 Chlordiazepoxide HCl 25 mg 07/05/25 11:13 Chlordiazepoxide (*Crx) 25 Mg Capsule PO Q8H PRN Anxiety Diazepam 5 - 10 mg 07/04/25 14:53 Diazepam Inj (*Crx) 10 Mg/2 Ml Syringe IV PUSH Q5M PRN CIWA > 15 Folic Acid 1 mg 07/05/25 09:00 07/08/25 09:56 Folic Acid 1 Mg/0.2 Ml Inj IV PUSH 1 mg DAILY HUDSON Administration Heparin Sodium (Porcine) 5,000 units 07/04/25 22:00 07/08/25 15:17 Heparin Sodium 5,000 Units/Ml Vial SUB-Q 5,000 units Q8HR HUDSON Administration Lactated Ringer's 1,000 mls @ 125 mls/hr 07/04/25 11:20 07/08/25 15:20 Lr - Lactated Ringers Iv IV CONT 0 mls/hr .Q8H HUDSON Infusion Ondansetron HCl 4 mg 07/04/25 14:46 Ondansetron Inj 4 Mg/2 Ml Vial IV PUSH Q4H PRN Nausea And Vomiting Pantoprazole Sodium 40 mg 07/04/25 21:00 07/08/25 09:56 Pantoprazole Sodium Iv 40 Mg Vial IV PUSH 40 mg Q12HR HUDSON Administration Polyethylene Glycol 17 gm 07/07/25 11:10 07/08/25 09:55 Polyethylene Glycol 3350 17 Gm Powd.Pack PO 17 gm QAM HUDSON Administration Thiamine HCl 100 mg 07/05/25 09:00 07/08/25 09:55 Thiamine Hcl 200 Mg/2 Ml Vial IV PUSH 100 mg DAILY HUDSON Administration Radiology Results: ITS Impressions Abdomen/Pelvis CT 07/04/25 10:37 IMPRESSION: 1. Acute pancreatitis, with mildly worsened surrounding fluid and inflammation from prior scan. 2. Focal pancreatic tail necrosis. 3. Mild scattered ascites. 4. Otherwise no acute abnormality. Labs Labs: Laboratory Results - last 24 hr 07/08/25 07/08/25 05:19 12:13 WBC 8.0 RBC 4.25 L Hgb 13.3 L Hct 40.3 L MCV 94.8 MCH 31.3 MCHC 33.0 RDW 12.6 Plt Count 289 MPV 9.3 Immature Gran % (Auto) 0.2 Neut % (Auto) 48.6 Lymph % (Auto) 34.7 [place] % (Auto) 10.6 H Eos % (Auto) 5.4 H Baso % (Auto) 0.5 Lymph # (Auto) 2.78 [place] # (Auto) 0.9 H Eos # (Auto) 0.4 H Baso # (Auto) 0.0 Abs Immat Gran (auto) 0.02 Absolute Neuts (auto) 3.9 Absolute Nucleated RBC 0.000 Nucleated RBC % 0.0 Sodium 135 L Potassium 3.8 Chloride 100 Carbon Dioxide 30 Anion Gap 5 BUN 3 L Creatinine 0.58 L Estim Creat Clear Calc 129 Estimated GFR > 60 Glucose 105 POC Capillary Glucose 109 H Calcium 8.4 Total Bilirubin 0.3 AST 41 ALT 20 Alkaline Phosphatase 86 Total Protein 6.3 Albumin 3.4 L
[2025-07-08 19:30] VITALS: PULSE 62; RESP 20; O2SAT 95
[2025-07-08 22:00] VITALS: BP 127/91; PULSE 58; RESP 16; TEMP 36.9; O2SAT 100
[2025-07-09] MEDS: HYDROcodone/acetaminophen (*CRX) 5-325 MG TABLET 1 TAB PO ×2 (02:18→08:24)
[2025-07-09 05:14] VITALS: BP 109/73; PULSE 50; RESP 14; TEMP 36.5; O2SAT 100
[2025-07-09 06:17] LABS: Hematocrit 41.8 % (42.0-52.0); Hemoglobin 13.6 g/dL (14.0-18.0); Immature Granulocyte Percent A 0.5 % (0-0.5); Lymphocytes Absolute Auto 2.52 K/mm3 (0.9-3.2); Mean Corpuscular HGB Conc 32.5 g/dl (32-36); Mean Corpuscular Hemoglobin 31.3 pg (26-34); Mean Corpuscular Volume 96.3 fl (80-100); Nucleated Red Blood Cells Absolute Auto 0.000 K/mm3 (0.0-0.012); Nucleated Red Blood Cells Perc 0.0 % (0.0-0.2); Platelet Count Result 300 k/mm3 (150-375); Red Blood Count 4.34 M/mm3 (4.6-6.20); White Blood Count 5.8 K/mm3 (4.5-10.0)
[2025-07-09 07:16] LABS: Alanine Aminotransferase 34 U/L (6-50); Albumin Level 3.5 g/dL (3.5-5.1); Alkaline Phosphatase 78 U/L (38-126); Anion Gap 4 mmol/L (4-12); Aspartate Amino Transferase 75 U/L (17-59); Bilirubin,Total 0.2 mg/dL (0.2-1.3); Blood Urea Nitrogen 6 mg/dL (9-20); Calcium 8.5 mg/dL (8.4-10.2); Carbon Dioxide 30 mmol/L (22-30); Chloride 101 mmol/L (98-107); Estimated CRCL calculation 120 ml/min; Estimated Glomerular Filt Rate > 60; Glucose 104 mg/dL (65-110); Lipase 723 U/L (23-300); Potassium 3.9 mmol/L (3.4-5.0); Sodium 135 mmol/L (137-145); Total Protein 6.6 g/dL (6.3-8.2)
--- NOTE | 2025-07-09 10:57 | P.DS_ITS ---
DS: Admitting Diagnosis Discharge Date 07/09/25 Admitting Diagnosis Acute pancreatitis DS: Discharge Diagnosis Discharge Diagnosis (1) Alcohol use: Code(s): F10.90 - Alcohol use, unspecified, uncomplicated Status: Acute (2) Nausea and vomiting: Qualifiers: Vomiting type: bilious vomiting Qualified Code(s): R11.14 - Bilious vomiting Code(s): R11.2 - Nausea with vomiting, unspecified Status: Acute (3) Pancreatitis: Qualifiers: Acute pancreatitis complication: uninfected necrosis Chronicity: acute Pancreatitis type: alcohol induced Qualified Code(s): K85.21 - Alcohol induced acute pancreatitis with uninfected necrosis Code(s): K85.90 - Acute pancreatitis without necrosis or infection, unspecified Status: Acute (4) Abdominal pain: Code(s): R10.9 - Unspecified abdominal pain Status: Acute (5) Leukocytosis: Code(s): D72.829 - Elevated white blood cell count, unspecified Status: Acute DS: Summary Hospital Course Reason for hospitalization: Abdominal pain, acute pancreatitis Hospital Course: 45-year-old male with past medical history of alcohol use disorder, recent history of pancreatitis, almost a month ago presenting with acute abdominal pain along with nausea vomiting, CT abdomen suggestive of acute pancreatitis with focal tail necrosis. Patient denies drinking alcohol this time. Patient was treated supportively with IV fluids, bowel rest, pain control. Patient was s tarted on antibiotic for possible pancreatic tail necrosis on imaging. GI was consulted. Eventually symptoms improved. Patient was able to tolerate p.o. medications along with diet. Antibiotics were discontinued. Alcohol cessation counseling. Patient was discharged home in stable condition. Status at Discharge Functional status at discharge: independent ambulation Overall status at discharge: patient is back to baseline Time Spent with Patient Time attestation: Total time spent providing and/or coordinating discharge services: 33 minutes Exam Const: General: comfortable and no acute distress HENMT: Face/Nose/Sinus: Normal nares present Mouth: Yes moist mucous membranes Eyes: Sclera: sclerae normal Neck: Neck: supple Resp: Effort & Inspection: normal respiratory effort Auscultation: clear to auscultation bilaterally Cardio: Rate: regular rate Rhythm: regular rhythm GI: Auscultation: normal bowel sounds Skin: General skin exam: normal color Neuro: Speech: normal speech Extrem: General: normal to inspection Psych: Mental Status: mental status grossly normal DS: Data Data Completed and Pending Labs on day of discharge: Labs from last 24 hours 07/09/25 07/08/25 05:28 12:13 WBC 5.8 RBC 4.34 L Hgb 13.6 L Hct 41.8 L MCV 96.3 MCH 31.3 MCHC 32.5 RDW 12.3 Plt Count 300 MPV 9.5 Immature Gran % (Auto) 0.5 Neut % (Auto) 34.6 L Lymph % (Auto) 43.4 [place] % (Auto) 12.9 H Eos % (Auto) 7.9 H Baso % (Auto) 0.7 Lymph # (Auto) 2.52 [place] # (Auto) 0.8 H Eos # (Auto) 0.5 H Baso # (Auto) 0.0 Abs Immat Gran (auto) 0.03 Absolute Neuts (auto) 2.0 Absolute Nucleated RBC 0.000 Nucleated RBC % 0.0 Sodium 135 L Potassium 3.9 Chloride 101 Carbon Dioxide 30 Anion Gap 4 BUN 6 L Creatinine 0.63 L Estim Creat Clear Calc 120 Estimated GFR > 60 Glucose 104 POC Capillary Glucose 109 H Calcium 8.5 Total Bilirubin 0.2 AST 75 H ALT 34 Alkaline Phosphatase 78 Total Protein 6.6 Albumin 3.5 Lipase 723 H Preliminary micro results at discharge 07/04/25 15:59 Blood Culture - Preliminary Blood 07/04/25 16:12 Blood Culture - Preliminary Blood Discharge Plan Discharge Attending physician on discharge: Tammie House Consulting providers: J Luis Díaz; Paxton Castillo Discharging Clinician: Tammie House Anticipated Discharge Date/Time: 07/09/25 10:55 Patient Disposition: Home Activity: as tolerated Diet: low fat and low fiber Patient Instructions: Antibiotic Form Patient Language: Turkmen Stand Alone Forms: General Discharge Information Follow-up/Referrals: J Luis Díaz MD [Physician, Family Practice] - 2 Weeks Discharge Medications: New hydrocodone-acetaminophen 5-325 mg Tablet 1 tablet PO Q4H PRN (Reason: Pain Rated 4-6) Qty: 10 0RF Continued famotidine [Pepcid] 20 mg tablet 20 mg PO DAILY Qty: 30 0RF Date of admission: 07/04/25 13:27 Primary Care Provider: PHYSICIAN,TARIFF COMPILER Admitting Provider: Adriana Ayala Attending physician on admission: Adriana Ayala Condition: Improved
[2025-07-09 16:09] LABS: Carisoprodol/Meprobamat Scrn,U Negative ng/mL (Cutoff=200); EDDP Screen, Urine Negative ng/mL (Cutoff=300); Fentanyl Screen, Urine Negative pg/mL (Cutoff=2000); Phencyclidine Screen, Urine Negative ng/mL (Cutoff=25); Tapentadol Screen, Urine Negative ng/mL (Cutoff=200); Tramadol Screen, Urine Negative ng/mL (Cutoff=200)
== END 2025-07-09 12:00 | disposition home or self-care (01) | DRG 282 ==
LOC: ANHED 09:29 → ANH3MED 12:18
PROVIDERS: Nurse Practitioner Adult Health; Admitting Provider Family Medicine; Emergency Provider Emergency Medicine; Visit Provider Internal Medicine
DX: K85.21 Alcohol induced acute pancreatitis with uninfected necrosis (principal); R16.0 Hepatomegaly, not elsewhere classified; F10.10 Alcohol abuse, uncomplicated; M31.19 Other thrombotic microangiopathy; D72.829 Elevated white blood cell count, unspecified; R13.10 Dysphagia, unspecified; R18.8 Other ascites; E86.0 Dehydration
CPT/HCPCS: 36415; 74177; 80053; 80061; 80307; 80372; 81001; 82077; 82150; 82948; 83690; 83735; 85025; 87040; 96361; 96374; 96375; 96376; 99285; A9270; G0378; J1171; J1644; J2405; J2470; J2543; J3411; J7120; Q9967